=== PATIENT | female | born 1995 | race Caucasian/White ===

== ENCOUNTER 2017-06-03 15:22 | Emergency (ER) | payer MEDICAID, OTHER ==
[~2017-06-03] VITALS: Ht 160 cm; Wt 73.7 kg
[2017-06-03 15:30] VITALS: BP 145/86
--- NOTE | 2017-06-03 15:35 | NUR ---
Pt provided with a urine cup and sent to lobby to wait for a bed.
--- NOTE | 2017-06-03 16:40 | NUR ---
PATIENT PRESENTS TO ED WITH VAGINAL PAIN X 3 DAYS AGO, PT STATES "I HAVE A BALL THE SIZE OF LEMON INSIDE, IT'S SQUISHY." HX NONE; DENIES N/V/D; SKIN IS PINK/WARM/DRY; AAOX4 WITH EVEN AND STEADY GAIT; LUNGS CLEAR BL; HR EVEN AND REGULAR; PT DENIES ANY FEVER, CP, SOB, OR COUGH AT THIS TIME; PATIENT STATES PAIN OF 9/10 AT THIS TIME; VSS; PATIENT POSITIONED FOR COMFORT; HOB ELEVATED; BEDRAILS UP X2; BED DOWN. ER MD MADE AWARE OF PT STATUS.
--- NOTE | 2017-06-03 17:14 | NUR ---
DR ARELLANO EVALUATING AAO PT AT BEDSIDE WITH RN MARII
[2017-06-03] MEDS ORDERED: KETOROLAC 60 MG/2 ML VIAL IM ONE (17:20)
--- NOTE | 2017-06-03 17:20 | NUR ---
Pelvic exam performed by Dr. Palumbo with myself at bedside for entire examination. Patient tolerated procedure well. Patient assisted to position of comfort after examination.
[2017-06-03 17:56] VITALS: BP 143/83
--- NOTE | 2017-06-03 17:56 | NUR ---
Patient discharged with v/s stable. Written and verbal after care instructions given and explained. Patient alert, oriented and verbalized understanding of instructions. Ambulatory with steady gait. All questions addressed prior to discharge. ID band removed. Patient advised to follow up with PMD. Rx of MOTRIN 800MG TAB, NORCO 5MG-325MG TAB & CIPRO 500MG TAB given. Patient educated on indication of medication including possible reaction and side effects. Opportunity to ask questions provided and answered.
== END 2017-06-03 17:56 | disposition home or self-care (01) ==
LOC: MED 15:22
DX: N89.8 Other specified noninflammatory disorders of vagina (principal)
CPT/HCPCS: 81002; 81025; 96372; 99283; J1885

== ENCOUNTER 2018-05-06 19:49 | Observation (INO) | payer SELFPAY ==
[~2018-05-06] VITALS: Ht 157.5 cm; Wt 83.9 kg
[2018-05-06 21:44] VITALS: BP 128/78
== END 2018-05-06 21:03 | disposition home or self-care (01) ==
LOC: MLD 19:49
PROVIDERS: ADMIT Obstetrics & Gynecology; ATTEND Obstetrics & Gynecology
DX: O26.893 Other specified pregnancy related conditions, third trimester (principal); R10.30 Lower abdominal pain, unspecified; Z3A.36 36 weeks gestation of pregnancy
CPT/HCPCS: G0378

== ENCOUNTER 2018-05-25 09:49 | Observation (INO) | payer MEDICAID ==
[~2018-05-25] VITALS: Ht 160 cm; Wt 91.2 kg
[2018-05-25 10:47] VITALS: BP 124/85
[2018-05-25 11:42] LABS: BASOPHILS % (AUTO) 0.5 % (0.0-2.0); EOSINOPHILS # (AUTO) 0.1 K/uL (0-0.4); EOSINOPHILS % (AUTO) 0.8 % (0.0-4.0); HEMATOCRIT 44.8 % (36-48); HEMOGLOBIN 14.9 g/dL (12.0-16.0); LYMPHOCYTES % (AUTO) 19.4 % (20.5-51.1); MEAN CORPUSCULAR HEMOGLOBIN 29 pg (27-31); MEAN CORPUSCULAR HGB CONC 33 g/dL (33-37); MEAN CORPUSCULAR VOLUME 86.1 fL (80-94); MONOCYTES # (AUTO) 0.7 K/uL (0.8-1.0); MONOCYTES % (AUTO) 6.9 % (1.7-9.3); NEUTROPHILS # (AUTO) 7.3 K/uL (1.8-7.7); NEUTROPHILS % (AUTO) 72.4 % (42.2-75.2); PLATELET COUNT (AUTO) 224 K/uL (140-450); RED CELL DISTRIBUTION WIDTH 15.1 % (11.6-13.7); WHITE BLOOD COUNT (AUTO) 10.1 K/uL (4.8-10.8)
[2018-05-25 12:57] LABS: APPEARANCE,URINE HAZY (CLEAR); BILIRUBIN,URINE NEGATIVE (NEGATIVE); BLOOD, URINE TRACE-I (NEGATIVE); COLOR,URINE YELLOW (YELLOW); LEUKOCYTE ESTERASE ,URINE NEGATIVE (NEGATIVE); NITRITE, URINE NEGATIVE (NEGATIVE); UGLUCOSE NEGATIVE (NEGATIVE)
[2018-05-25 13:15] LABS: RBC,URINE 0-5 (RARE) /HPF (0-5); WBC,URINE 0-5 (RARE) /HPF (0-5)
--- NOTE | 2018-05-25 13:49 | NUR ---
PATIENT HAS BEEN SCREENED AND CATEGORIZED LOW NUTRITION RISK. PATIENT WILL BE SEEN WITHIN 7 DAYS OF ADMISSION. 06/01/18 PAULA BARKER MBA, RD
== END 2018-05-25 14:00 | disposition home or self-care (01) ==
LOC: MLD 09:49
PROVIDERS: ADMIT Obstetrics & Gynecology; ATTEND Obstetrics & Gynecology
DX: O26.853 Spotting complicating pregnancy, third trimester (principal); Z3A.38 38 weeks gestation of pregnancy
CPT/HCPCS: 36415; 76805; 81001; 85025; 85379; G0378; Q0092

== ENCOUNTER 2018-05-30 03:50 | Inpatient (IN) | payer MEDICAID ==
[~2018-05-30] VITALS: Ht 160 cm; Wt 73.5 kg
[2018-05-30] MEDS ORDERED: OXYTOCIN 10 UNITS/ML VIAL IM SCH (04:20)
[2018-05-30] MEDS ORDERED: LACTATED RINGERS 500 ML IV ONE (04:20)
[2018-05-30 05:02] VITALS: BP 132/88
[2018-05-30] MEDS: LACTATED RINGERS 1,000 ML IV SCH ×2 (05:23→16:52)
[2018-05-30] MEDS ORDERED: AMPICILLIN 2,000 MG in NACL 0.9% 100 ML IV ONE (05:30)
[2018-05-30] MEDS ORDERED: PREN-380 PO (05:31)
[2018-05-30] MEDS ORDERED: AMPICILLIN 2,000 MG VIAL ONE (05:37)
[2018-05-30 06:05] LABS: BILIRUBIN,URINE NEGATIVE (NEGATIVE); BLOOD, URINE TRACE-I (NEGATIVE); COLOR,URINE YELLOW (YELLOW); LEUKOCYTE ESTERASE ,URINE NEGATIVE (NEGATIVE); NITRITE, URINE NEGATIVE (NEGATIVE); UGLUCOSE NEGATIVE (NEGATIVE)
[2018-05-30 06:06] LABS: APPEARANCE,URINE CLEAR (CLEAR)
[2018-05-30 06:08] LABS: RBC,URINE 0-5 (RARE) /HPF (0-5); WBC,URINE 0-5 (RARE) /HPF (0-5)
[2018-05-30 06:14] LABS: BASOPHILS % (AUTO) 0.3 % (0.0-2.0); EOSINOPHILS # (AUTO) 0.1 K/uL (0-0.4); EOSINOPHILS % (AUTO) 1.5 % (0.0-4.0); HEMATOCRIT 42.1 % (36-48); HEMOGLOBIN 14.3 g/dL (12.0-16.0); LYMPHOCYTES # (AUTO) 2.2 K/uL (2.5-16.5); LYMPHOCYTES % (AUTO) 22.4 % (20.5-51.1); MEAN CORPUSCULAR HEMOGLOBIN 29 pg (27-31); MEAN CORPUSCULAR HGB CONC 34 g/dL (33-37); MEAN CORPUSCULAR VOLUME 85.7 fL (80-94); MONOCYTES # (AUTO) 0.7 K/uL (0.8-1.0); MONOCYTES % (AUTO) 7.3 % (1.7-9.3); NEUTROPHILS # (AUTO) 6.6 K/uL (1.8-7.7); NEUTROPHILS % (AUTO) 68.5 % (42.2-75.2); PLATELET COUNT (AUTO) 214 K/uL (140-450); RED BLOOD CELL COUNT(AUTO) 4.91 MIL/uL (4.20-5.40); RED CELL DISTRIBUTION WIDTH 15.1 % (11.6-13.7); WHITE BLOOD COUNT (AUTO) 9.7 K/uL (4.8-10.8)
[2018-05-30] MEDS ORDERED: OXYTOCIN 20 UNITS/LR PREMIX 1,000 ML IV SCH (08:00)
--- NOTE | 2018-05-30 08:04 | NUR ---
PATIENT HAS BEEN SCREENED AND CATEGORIZED LOW NUTRITION RISK. PATIENT WILL BE SEEN WITHIN 7 DAYS OF ADMISSION. 06/03/18 - 06/05/[address]
[2018-05-30] MEDS: AMPICILLIN 1,000 MG in NACL 0.9% 50 ML IV SCH ×3 (09:24→21:16)
[2018-05-30] MEDS ORDERED: AMPICILLIN 1,000 MG VIAL ONE ×4 (09:26→21:17)
[2018-05-30] MEDS ORDERED: ROPIVACAINE 0.2%/NS PREMIX 100 ML EPI SCH (11:40)
[2018-05-30] MEDS ORDERED: ROPIVACAINE 0.2%/NS PREMIX 100 ML EPI ONE ×2 (11:51→20:52)
[2018-05-30] MEDS: DEXT 5% / LACT RING 1,000 ML IV SCH (19:40)
[2018-05-31] VITALS (14 sets, daily range): BP systolic 106–148; BP diastolic 51–87
[2018-05-31] MEDS ORDERED: AMPICILLIN 1,000 MG VIAL ONE (01:12)
[2018-05-31] MEDS: AMPICILLIN 1,000 MG in NACL 0.9% 50 ML IV SCH (01:12)
[2018-05-31] MEDS ORDERED: TERBUTALINE 1 MG/ML VIAL SUBQ ONE (02:16)
[2018-05-31] MEDS ORDERED: MORPHINE PRES FREE 10 MG/10 ML AMP IV ONE (02:54)
[2018-05-31] MEDS ORDERED: ONDANSETRON 4 MG/2 ML VIAL ONE (02:55)
[2018-05-31] MEDS ORDERED: PROPOFOL 200 MG/20 ML VIAL IV ONE (02:55)
[2018-05-31] MEDS ORDERED: SODIUM BICARBONATE 8.4% PFS 50 MEQ/50 ML SYR IVP ONE (02:56)
[2018-05-31] MEDS ORDERED: LIDOCAINE MPF 2% 100 MG/5 ML VIAL INJ ONE (03:02)
[2018-05-31] MEDS ORDERED: NALOXONE 0.4 MG/ML VIAL ONE (03:17)
[2018-05-31] MEDS ORDERED: fentaNYL 0.05 MG/ML VIAL ONE (03:48)
[2018-05-31] MEDS ORDERED: KETAMINE 500 MG/5 ML VIAL ONE (03:52)
[2018-05-31] MEDS ORDERED: MIDAZOLAM 2 MG/2 ML VIAL ONE (03:52)
[2018-05-31] MEDS ORDERED: diphenhydrAMINE 50 MG/ML VIAL IVP PRN (05:55)
[2018-05-31] MEDS ORDERED: ONDANSETRON 4 MG/2 ML VIAL IVP PRN (05:55)
[2018-05-31] MEDS ORDERED: NALOXONE 0.4 MG/ML VIAL IVP PRN (05:55)
[2018-05-31 06:26] LABS: BASOPHILS % (AUTO) 0.1 % (0.0-2.0); EOSINOPHILS % (AUTO) 0.1 % (0.0-4.0); HEMATOCRIT 38.4 % (36-48); HEMOGLOBIN 12.9 g/dL (12.0-16.0); LYMPHOCYTES # (AUTO) 0.4 K/uL (2.5-16.5); LYMPHOCYTES % (AUTO) 7.9 % (20.5-51.1); MEAN CORPUSCULAR HEMOGLOBIN 29 pg (27-31); MEAN CORPUSCULAR HGB CONC 34 g/dL (33-37); MEAN CORPUSCULAR VOLUME 86.8 fL (80-94); MONOCYTES # (AUTO) 0.2 K/uL (0.8-1.0); MONOCYTES % (AUTO) 3.9 % (1.7-9.3); NEUTROPHILS # (AUTO) 4.6 K/uL (1.8-7.7); PLATELET COUNT (AUTO) 172 K/uL (140-450); RED BLOOD CELL COUNT(AUTO) 4.43 MIL/uL (4.20-5.40); RED CELL DISTRIBUTION WIDTH 15.2 % (11.6-13.7); WHITE BLOOD COUNT (AUTO) 5.2 K/uL (4.8-10.8)
[2018-05-31] MEDS ORDERED: OXYTOCIN 20 UNITS/LR PREMIX 1,000 ML IV ONE (06:33)
[2018-05-31 06:34] LABS: CARBON DIOXIDE 16.8 mmol/L (21-32); CREATININE 1.2 mg/dL (0.6-1.3); POTASSIUM 3.8 mmol/L (3.5-5.1)
[2018-05-31 06:39] LABS: ALBUMIN 1.7 g/dL (3.4-5.0); TOTAL BILIRUBIN 0.9 mg/dL (0.0-1.0)
[2018-05-31] MEDS ORDERED: MEASLES, MUMPS, AND RUBELLA 1 VIAL SQVAC PRN (06:45)
--- NOTE | 2018-05-31 06:47 | NUR ---
RECEIVED PATIENT ON ICU FROM RN, KAREN AMAYA.
--- NOTE | 2018-05-31 07:15 | NUR ---
DR. NOLASCO THE CORROSION PREVENTION METAL SPRAYER CALLED TO NOTIFIED .
--- NOTE | 2018-05-31 07:30 | NUR ---
RECEIVED PT FROM PM NURSE, PT IS SLEEPING BUT AROUSABLE. ABLE TO FOLLOW COMMANDS. BEDSIDE MONITOR SHOWS ST 130S-136S, ON O2 NC 2L/MIN, O2 99%.NO S/S OF RESPIRATORY DISTRESS NOTED. LUNG SOUND CLEAR UPON AUSCULTATION. ABD COVERED WITH DRESSING, CLEAN AND DRY. F/C IN PLACE WITH YELLOW URINE NOTED. INTRODUCED MYSELF . PT LYING FLAT IN BED , CALL LIGHT IN REACH, FAMILY AT BEDSIDE, WILL CONTINUE TO MONITOR.
--- NOTE | 2018-05-31 07:35 | NUR ---
PT HAS IV TO RIGHT FM # 20 RUNNING PITOCIN 20 UNITS/LR 1000 ML AT 125 MLS/HR. F/C TUBE HAS YELLOW URINE BUT F/C BAG URINE COLOR IS DARK MESERET. PT ALSO HAS MIMI DRAIN WITHOUT ANY DRAINAGE NOTED AT THIS MOMENT.
--- NOTE | 2018-05-31 07:45 | NUR ---
DR NOLASCO RETURN CALL.
[2018-05-31] MEDS: DEXT 5% / LACT RING 1,000 ML IV SCH (09:30)
--- NOTE | 2018-05-31 09:30 | NUR ---
DR. NOLASCO CALLED AND ORDER CT ANGIO OF CHEST WITH CONTRAS.
--- NOTE | 2018-05-31 09:30 | NUR ---
HUNG D5 LR AT 125 MLS/HR. IV SITE INTACT AND PATENT. PT STATED SHE DOES NOT HAVE PAIN IF SHE DOES NOT MOVE.
--- NOTE | 2018-05-31 10:15 | NUR ---
DR. NOLASCO AT BEDSIDE TO CHECK PT, PT AWAKE, ALERT AND ORIENTED. ALSO EXPLAINED RISKS AND BENEFITS OF CT ANGIO SCAN. PT SIGNED CONSENT.
--- NOTE | 2018-05-31 10:15 | NUR ---
SEEN BY DR. NOLASCO CONSENT FOR CT ANGIO OF CHEST SIGN.
[2018-05-31] MEDS ORDERED: VANCOMYCIN PER PHARMACY MC PRN (10:45)
[2018-05-31] MEDS ORDERED: PIPER/TAZO 3.375GM/D5W PREMIX 50 ML IV SCH (11:00)
--- NOTE | 2018-05-31 11:00 | NUR ---
SPREADING MACHINE OPERATOR AT BEDSIDE.
--- NOTE | 2018-05-31 11:37 | NUR ---
PT RESTING IN BED, PT DENIES ANY PAIN BUT PT STATED SHE HAS A LITTLE BIT PAIN WHEN SHE TURNS HERSELF.
--- NOTE | 2018-05-31 11:52 | NUR ---
LAB CALL RICARDO BURK 4.1, DR. CONSTANCE NORWOOD.
[2018-05-31] MEDS ORDERED: NACL 0.9% 1,000 ML IV SCH ×2 (12:10→12:30)
--- NOTE | 2018-05-31 12:15 | NUR ---
DR. NOLASCO CALL BACK, ORDER TO BOLUS 1000ML NS AND TO GIVE D5NS AT 125 ML/HR AFTER.
[2018-05-31] MEDS: PIPER/TAZO 3.375GM/D5W PREMIX 50 ML IV SCH ×3 (12:27→23:05)
[2018-05-31] MEDS: DEXT 5% /NACL 0.9% 1,000 ML IV SCH ×2 (12:30→13:30)
[2018-05-31] MEDS ORDERED: DEXT 5% / NACL 0.9% 500 ML IV SCH (12:30)
--- NOTE | 2018-05-31 12:30 | NUR ---
BOLUS 0.9 NS 1 L GIVEN ORDERED.
[2018-05-31] MEDS: OXYTOCIN 20 UNITS in LACTATED RINGERS 1,000 ML IV SCH ×2 (12:54→14:43)
[2018-05-31] MEDS: VANCOMYCIN 750 MG in DEXTROSE 5% 250 ML IV SCH (13:25)
[2018-05-31 14:37] LABS: BASOPHILS % (AUTO) 0.2 % (0.0-2.0); HEMATOCRIT 36.3 % (36-48); LYMPHOCYTES # (AUTO) 0.4 K/uL (2.5-16.5); LYMPHOCYTES % (AUTO) 3.4 % (20.5-51.1); MEAN CORPUSCULAR HEMOGLOBIN 29 pg (27-31); MEAN CORPUSCULAR HGB CONC 33 g/dL (33-37); MONOCYTES # (AUTO) 0.4 K/uL (0.8-1.0); MONOCYTES % (AUTO) 3.6 % (1.7-9.3); NEUTROPHILS # (AUTO) 11.7 K/uL (1.8-7.7); NEUTROPHILS % (AUTO) 92.8 % (42.2-75.2); PLATELET COUNT (AUTO) 156 K/uL (140-450); RED BLOOD CELL COUNT(AUTO) 4.17 MIL/uL (4.20-5.40); RED CELL DISTRIBUTION WIDTH 15.3 % (11.6-13.7); WHITE BLOOD COUNT (AUTO) 12.6 K/uL (4.8-10.8)
--- NOTE | 2018-05-31 15:09 | NUR ---
NOTIFIED DR. NOLASCO PT HEART RATE IS STILL BETWEEN 130-139S. DR. NOLASCO ORDERED ANOTHER 1 LITER 0.[address] NOLASCO STATED HE IS COMING TO CHECK PT.
[2018-05-31] MEDS ORDERED: NACL 0.9% 500 ML IV SCH (15:10)
--- NOTE | 2018-05-31 15:28 | NUR ---
NS 1 LTR BOLUS STARTED PER ORDER.
--- NOTE | 2018-05-31 15:50 | NUR ---
DR. NOLASCO INTO UNIT TO CHECK PT. NOTIFIED PT'S HEART RATE 140S. PER DR. NOLASCO .D/C PITOCIN 20 UNITS/LR 1000 ML @ 125 ML/HR WHEN THIS CURRENT PITOCIN BAG IS DONE. CHARGE NURSE MALLORY MADE AWARE.
[2018-05-31] MEDS: LORazepam 1 MG TAB PO PRN ×2 (16:05→21:57)
--- NOTE | 2018-05-31 17:53 | NUR ---
DR. SCHOFIELD THE UTILITY ENGINEER INFORM THAT PT. HEART RATE IS INCREASE UP TO 150/MIN. HE WILL COME TO SEE THE PATIEN SOON.
--- NOTE | 2018-05-31 17:55 | NUR ---
NOTIFIED PT HEART RATE GOING UP TO 150S. AND DOUBLE CHECKED WITH DR. NOLASCO D/C PITOCIN DRIP WHEN THIS BAG IS DONE. DR. NOLASCO SAID " D/C PITOCIN DRIP WHEN THIS BAG IS DONE". CHARGE NURSE MADE AWARE.
--- NOTE | 2018-05-31 18:24 | NUR ---
CHECKED PT TEMP 99.7F. ICE BAGS GIVEN. WILL RECHECK IN 30 MINUTES. PT STATED SHE DOES NOT WANT TO EAT ANYTHING. FAMILY AT BEDSIDE.
[2018-05-31] MEDS ORDERED: METOPROLOL 5 MG/5 ML VIAL IV PRN (18:55)
[2018-05-31] MEDS ORDERED: METOPROLOL 5 MG/5 ML VIAL IV SCH (19:00)
--- NOTE | 2018-05-31 19:00 | NUR ---
ORAL temp checked 99.7F.removed one blanket. ice bags still in place.
--- NOTE | 2018-05-31 19:30 | NUR ---
RECEIVED REPORT FROM MORNING RN, SHARAN, FOR CONTINUITY OF CARE. PT AWAKE, ALERT AND ORIENTED X4. ABLE TO MAKE NEEDS KNOWN AND ABLE TO ANSWER QUESTIONS. PT DENIES HAVING ANY PAIN AT THIS TIME. PERRL. PT ABLE TO MOVE EXTREMITIES. LUNG SOUNDS CLEAR. PT ON OXYGEN AT 2L/MIN AND DENIES ANY SOB. RESPIRATIONS ARE EVEN AND UNLABORED. CHEST RISE SYMMETRIC. S1+S2 HEARD. PULSES ARE PALPABLE IN ALL EXTREMITIES. PT TACHYCARDIC ON MONITOR WITH HR BETWEEN 130S TO 140S. ABDOMEN ROUND, SOFT AND NONDISTENDED. ABDOMINAL DRESSING INTACT. NO BLEEDING NOTED. MIMI DRAIN ON THE LEFT SIDE OF ABDOMEN HAS MINIMAL OUTPUT AT THIS TIME. RUIZ CATHETER IN PLACE DRAINING CLEAR AND DARK YELLOW URINE. PT NOTED WITH MINIMAL LOCHIA RUBRA. RECEIVED PT WITH LEFT AC 20G PERIPHERAL IV ACCESS. LINE WAS FLUSHED AND WAS PATENT, INTACT, AND ASYMPTOMATIC. BLOOD RETURN NOTED. PT HAS SCD IN PLACE. KEPT BED AT LOW POSSIBLE POSITION, SAFETY PRECAUTIONS IN PLACE, AND CALL LIGHT IS WITHIN REACH.
[2018-05-31] MEDS ORDERED: ACETAMINOPHEN 325 MG TAB ONE (19:56)
--- NOTE | 2018-05-31 20:05 | NUR ---
PAGED DR. DU D/T ELEVATED TEMPERATURE OF 101.7; KEPT COOLING MEASURES IN PLACE. OFFERED TO SWITCH CURRENT BLANKET TO A THINNER ONE, BUT PT PREFER WHAT SHE CURRENTLY HAS D/T FEELING COLD.
--- NOTE | 2018-05-31 20:21 | NUR ---
RECEIVED CALLBACK FROM DR. DU, UPDATED HIM REGARDING CURRENT CONDITION OF PT AND RECEIVED NEW ORDER.
[2018-05-31] MEDS: ACETAMINOPHEN 325 MG TAB PO PRN (20:38)
--- NOTE | 2018-05-31 20:38 | NUR ---
RECHECKED PT'S TEMPERATURE PRIOR TO ANTIPYRETIC MEDICATION ADMINISTRATION. CURRENT TEMPERATURE IS 100.9
[2018-05-31 21:10] LABS: BASOPHILS % (AUTO) 0.2 % (0.0-2.0); HEMATOCRIT 33.9 % (36-48); HEMOGLOBIN 11.3 g/dL (12.0-16.0); LYMPHOCYTES # (AUTO) 0.8 K/uL (2.5-16.5); LYMPHOCYTES % (AUTO) 5.7 % (20.5-51.1); MEAN CORPUSCULAR HEMOGLOBIN 29 pg (27-31); MEAN CORPUSCULAR HGB CONC 33 g/dL (33-37); MEAN CORPUSCULAR VOLUME 86.6 fL (80-94); MONOCYTES # (AUTO) 0.7 K/uL (0.8-1.0); MONOCYTES % (AUTO) 5.1 % (1.7-9.3); NEUTROPHILS # (AUTO) 11.9 K/uL (1.8-7.7); PLATELET COUNT (AUTO) 151 K/uL (140-450); RED BLOOD CELL COUNT(AUTO) 3.91 MIL/uL (4.20-5.40); RED CELL DISTRIBUTION WIDTH 15.5 % (11.6-13.7); WHITE BLOOD COUNT (AUTO) 13.4 K/uL (4.8-10.8)
--- NOTE | 2018-05-31 21:40 | NUR ---
CURRENT TEMPERATURE OF PT 99.8; REMOVED COOLING MEASURES IN PLACE AT THIS TIME. PT STATES THAT SHE FEELS BETTER AND NO LONGER FEELING HOT.
--- NOTE | 2018-05-31 21:55 | NUR ---
PT NOTED TO STILL HAVE ELEVATED HR BETWEEN HIGH 130S TO HIGH 140S. SLIGHTLY ELEVATED RR AT 26. ATIVAN INDICATED FOR ANXIETY WAS ADMINISTERED. WILL RE-EVALUATE IN AN HOUR.
--- NOTE | 2018-05-31 22:55 | NUR ---
PT STILL HAS ELEVATED HR DESPITE MEDICATIONS ADMINISTERED. WILL FOLLOW-UP WITH SEASONAL RECRUITER, DR. ROSA SCHOFIELD.
--- NOTE | 2018-05-31 23:14 | NUR ---
CALLED DR. Crystal SCHOFIELD AND DISCUSSED WITH HIM THE CURRENT HR OF PATIENT. INFORMED HIM REGARDING THE CURRENT VS. RECEIVED NEW ORDERS. NOTED AND CARRIED OUT.
[2018-06-01] VITALS (11 sets, daily range): BP systolic 115–148; BP diastolic 50–104
[2018-06-01] MEDS ORDERED: METOPROLOL 5 MG/5 ML VIAL IV SCH
[2018-06-01] MEDS: VANCOMYCIN 750 MG in DEXTROSE 5% 250 ML IV SCH (00:02)
--- NOTE | 2018-06-01 00:10 | NUR ---
PT AFEBRILE AT THIS TIME. RESPIRATIONS ARE EVEN AND UNLABORED. PT STILL DENIES PAIN. REMINDED PT TO INFORM RN ONCE SHE STARTS FEELING ANY PAIN. STILL HAS ADEQUATE URINARY OUTPUT AT THIS TIME. CHECKED PERIPHERAL IV ACCESS ON LEFT FOREARM AND IT REMAINS INTACT WITH GOOD BLOOD RETURN.
--- NOTE | 2018-06-01 02:00 | NUR ---
PT'S HR HAS BEEN BETWEEN LOW 130S TO LOW 140S. OTHER VS ARE STABLE. PT STILL DENIES PAIN AT THIS TIME. RESPIRATIONS ARE EVEN AND UNLABORED. STILL ON OXYGEN AT 2L/MIN. ASSISTED PT IN REPOSITIONING. PT STILL HAS ADEQUATE URINARY OUTPUT.
[2018-06-01] MEDS: DEXT 5% /NACL 0.9% 1,000 ML IV SCH ×3 (02:35→20:30)
--- NOTE | 2018-06-01 03:49 | NUR ---
PT AWAKE AT THIS TIME. SINUS TACHYCARDIA ON THE MONITOR WITH HR AT 139 AT THIS TIME. PT DENIES FEELING ANY DISCOMFORT CURRENTLY. SKIN IS WARM AND DRY TO TOUCH, AFEBRILE AT THIS TIME. CALL LIGHT STILL WITHIN REACH.
--- NOTE | 2018-06-01 05:40 | NUR ---
RUIZ CATHETER CARE PROVIDED WITH PT. PT ABLE TO ASSIST IN TURNING BUT NEEDS MODERATE ASSISTANCE. NO BLEEDING NOTED FROM THE ABD DRESSING. RUIZ CATHETER STILL HAS ADEQUATE URINE OUTPUT. IV SITE ON LEFT AC REMAINS INTACT AND ASYMPTOMATIC. PT DENIES ANY PAIN OR ANY DISCOMFORT AFTER PM CARE PROVIDED. KEPT PT WITH HOB ELEVATED. ENCOURAGED PT TO USE INCENTIVE SPIROMETER. INSTRUCTED PT ON HOW TO USE IT WELL BUT NEEDS REINFORCEMENT.
[2018-06-01] MEDS: PIPER/TAZO 3.375GM/D5W PREMIX 50 ML IV SCH ×4 (05:52→23:44)
--- NOTE | 2018-06-01 07:15 | NUR ---
REPORT GIVEN TO MORNING RN FOR CONTINUITY OF CARE. PT IN STABLE CONDITION AT THIS TIME. ENDORSED TO MORNING RN THE LABS PENDING AND REMOVAL OF RUIZ CATHETER.
--- NOTE | 2018-06-01 07:16 | NUR ---
RECEIVED REPORT FROM PRODUCT MANAGENT INTERN RN. PT A/O X4. MAKES NEEDS KNOWN. SKIN DRY AND WARM TO TOUCH. ST ON MONITOR. ON O2 AT 2 LTR/MIN VIA NC. LUNGS CLEAR. LAC 20 G. INTACT. D5%NS INFUSING AT 125 ML/HR. BRUISE NOTED ON LFA. ABDOMEN FIRM, ROUND AND TENDER. S/P C/S DRESSING DRY, INTACT. MINIMAL DRAINAGE ON DRAINAGE BAG. MINIMAL LOCHIA RUBRA NOTED. KADE CARE PROVIDED. HYPOACTIVE BOWEL SOUND. ON RUIZ CATH DRAINING DARK MESERET URINE IN DRAINAGE BAG. KEPT HOB ELEVATED. BED IN LOW POSITION LOCKED. WILL CONTINUE TO MONITOR.
[2018-06-01 07:22] LABS: BASOPHILS % (AUTO) 0.1 % (0.0-2.0); EOSINOPHILS # (AUTO) 0.1 K/uL (0-0.4); EOSINOPHILS % (AUTO) 0.5 % (0.0-4.0); HEMATOCRIT 31.9 % (36-48); HEMOGLOBIN 10.6 g/dL (12.0-16.0); LYMPHOCYTES # (AUTO) 0.9 K/uL (2.5-16.5); MEAN CORPUSCULAR HEMOGLOBIN 29 pg (27-31); MEAN CORPUSCULAR HGB CONC 33 g/dL (33-37); MEAN CORPUSCULAR VOLUME 86.6 fL (80-94); MONOCYTES # (AUTO) 0.4 K/uL (0.8-1.0); MONOCYTES % (AUTO) 3.3 % (1.7-9.3); NEUTROPHILS # (AUTO) 11.9 K/uL (1.8-7.7); NEUTROPHILS % (AUTO) 89.1 % (42.2-75.2); PLATELET COUNT (AUTO) 140 K/uL (140-450); RED BLOOD CELL COUNT(AUTO) 3.68 MIL/uL (4.20-5.40); RED CELL DISTRIBUTION WIDTH 15.6 % (11.6-13.7); WHITE BLOOD COUNT (AUTO) 13.3 K/uL (4.8-10.8)
[2018-06-01 08:02] LABS: MAGNESIUM 1.2 mg/dL (1.8-2.4); PHOSPHORUS 3.9 mg/dL (2.5-4.9)
[2018-06-01 08:15] LABS: POTASSIUM 3.6 mmol/L (3.5-5.1)
[2018-06-01 08:16] LABS: ANION GAP 9.3 (8-16); CARBON DIOXIDE 25.3 mmol/L (21-32); CREATININE 0.7 mg/dL (0.6-1.3)
[2018-06-01 08:35] LABS: ALBUMIN 1.5 g/dL (3.4-5.0); BILIRUBIN,DIRECT 0.4 mg/dL (0.0-0.3); TOTAL BILIRUBIN 0.9 mg/dL (0.0-1.0)
[2018-06-01] MEDS ORDERED: METOPROLOL 25 MG TAB PO SCH (08:50)
[2018-06-01] MEDS ORDERED: MAG SULF 2000 MG/WATER PREMIX 100 ML IV SCH (08:51)
[2018-06-01 09:11] LABS: BASOPHILS % (AUTO) 0.1 % (0.0-2.0); EOSINOPHILS # (AUTO) 0.1 K/uL (0-0.4); EOSINOPHILS % (AUTO) 0.5 % (0.0-4.0); HEMATOCRIT 32.6 % (36-48); HEMOGLOBIN 10.7 g/dL (12.0-16.0); LYMPHOCYTES # (AUTO) 0.8 K/uL (2.5-16.5); LYMPHOCYTES % (AUTO) 5.5 % (20.5-51.1); MEAN CORPUSCULAR HEMOGLOBIN 29 pg (27-31); MEAN CORPUSCULAR HGB CONC 33 g/dL (33-37); MEAN CORPUSCULAR VOLUME 87.4 fL (80-94); MONOCYTES # (AUTO) 0.5 K/uL (0.8-1.0); MONOCYTES % (AUTO) 3.7 % (1.7-9.3); NEUTROPHILS # (AUTO) 12.9 K/uL (1.8-7.7); NEUTROPHILS % (AUTO) 90.2 % (42.2-75.2); PLATELET COUNT (AUTO) 142 K/uL (140-450); RED BLOOD CELL COUNT(AUTO) 3.73 MIL/uL (4.20-5.40); RED CELL DISTRIBUTION WIDTH 15.3 % (11.6-13.7); WHITE BLOOD COUNT (AUTO) 14.4 K/uL (4.8-10.8)
[2018-06-01] MEDS: KETOROLAC 30 MG/ML VIAL IVP PRN ×2 (09:22→16:25)
[2018-06-01] MEDS: ACETAMINOPHEN 325 MG TAB PO PRN ×2 (09:22→16:31)
--- NOTE | 2018-06-01 09:31 | NUR ---
Pt. c/o pain at surgical site. toradol administered as ordered. Noted with elevated body temperature 100.6 Degree F. Tylenol administered ad ordered. sponge bath given. continue on cold compress.
--- NOTE | 2018-06-01 10:34 | NUR ---
Temperature decreased to 99.4 degree F. Pt. verbalized feeling better and more relaxed. Denies pain. HR 117 in monitor.
--- NOTE | 2018-06-01 10:36 | NUR ---
Urine culture taken to the lab.
--- NOTE | 2018-06-01 11:43 | NUR ---
FATHER CAME IN ROOM TO VISIT PT. ASK FOR PRINT SHOP STENOGRAPHER TO SPEAK. CALLED PRINT SHOP STENOGRAPHER USING [email or web address]. SPOKE WITH DIGITAL ASSOCIATE MEDIA DIRECTOR MATT # [phone]. PRINT SHOP STENOGRAPHER SAID FATHER WANTS INSPERSION PRINT SHOP STENOGRAPHER, AND IS UPSET. FATHER HUNG UP CALL. PICKER MACHINE OPERATOR LIZETTE CASILLAS.
--- NOTE | 2018-06-01 11:47 | NUR ---
DR NOLASCO AWARE ABOUT TACHYCARDIA AND TACHYPNEA. CONTINUE WITH CURRENT POC.
--- NOTE | 2018-06-01 11:47 | NUR ---
SEEN BY DR. NOLASCO. UPDATED PT CONDITION. MADE AWARE ABOUT FEVER.
--- NOTE | 2018-06-01 12:40 | NUR ---
VANCOMYCIN WILL BE GIVEN AFTER VANCO TROUGH RESULT. PHARMACY AWARE ABOUT DUE VANCO TROUGH.
[2018-06-01] MEDS: METOPROLOL 25 MG TAB PO SCH ×2 (13:12→20:34)
[2018-06-01] MEDS: HYDROmorphone 1 MG/ML AMP IVP PRN (13:17)
--- NOTE | 2018-06-01 14:08 | NUR ---
PT DENIES PAIN AT THIS TIME. ST ON MONITOR. RR 18. D5%NS INFUSING. CONTINUE ON O2 AT 2 LTR/MIN.
[2018-06-01] MEDS ORDERED: VANCOMYCIN 1,500 MG in DEXTROSE 5% 500 ML IV SCH (14:16)
[2018-06-01] MEDS ORDERED: NACL 0.9% 1,000 ML IV SCH (15:10)
--- NOTE | 2018-06-01 16:33 | NUR ---
NOTED WITH FEVER 100.6 DEGREE F. TYLENOL PER ORDER GIVEN. CONTINUE ON COLD COMPRESS.
--- NOTE | 2018-06-01 17:08 | NUR ---
DC'D RUIZ CATHETER.
--- NOTE | 2018-06-01 18:22 | NUR ---
PT REQUESTED TO KEEP VALUABLES IN SAFE. CALLED ADMITTING. VALUABLES TAKEN BY ADMITTING. Addendum: 06/01/18 at 1826 by Diana Hernandez RN WRONG PT CHARTING
--- NOTE | 2018-06-01 18:30 | NUR ---
PT SIT UP. ENCOURAGED TO USE SPIROMETRY. TOLERATED WELL. VOIDED X1.
--- NOTE | 2018-06-01 19:17 | NUR ---
REPORT GIVEN TO SUPERVISOR BONDING RN FOR CONTINUITY OF CARE.
--- NOTE | 2018-06-01 19:30 | NUR ---
RECEIVED REPORT FROM MORNING RN, BARTOLO, FOR CONTINUITY OF CARE. PT AWAKE, ALERT AND ORIENTED X4. ABLE TO MAKE NEEDS KNOWN. PT IS ABLE TO FOLLOW COMMANDS. AFEBRILE. VS WNL ASIDE FROM ELEVATED HR. PERRL. PT ABLE TO MOVE EXTREMITIES. PT DENIES PAIN AT THIS TIME. LUNG SOUNDS CLEAR. RECEIVED PT ON OXYGEN AT 2L/MIN VIA NC. RESPIRATIONS ARE EVEN AND UNLABORED. NO SOB NOTED. PT HAS INCENTIVE SPIROMETER AND KNOWS HOW TO USE IT. S1+S2 HEARD[address] ON MONITOR. PULSES ARE PALPABLE IN ALL EXTREMITIES. ABDOMEN ROUND, SOFT AND NONDISTENDED. BS ACTIVE IN ALL QUADRANTS. ABD DRESSING INTACT AND NO BLEEDING NOTED. MIMI DRAIN IN PLACE AND HAS MINIMAL OUTPUT OF SANGUINOUS FLUID. SCANT LOCHIA RUBRA NOTED. PT DENIES NEEDING TO VOID AT THIS TIME. SCD IN PLACE. PT HAS PERIPHERAL IV ACCESS ON LEFT AC 20G. LINE IS PATENT, INTACT, AND ASYMPTOMATIC. LINE FLUSHED WELL AND HAS A GOOD BLOOD RETURN NOTED. RECEIVED PT ON D5 NS AT 125ML/HR. HOB AT 30 DEGREES. LINE AT LOWEST POSSIBLE POSITION. CALL LIGHT WITHIN REACH. ALL SAFETY PRECAUTIONS ARE IN PLACE.
[2018-06-01] MEDS: VANCOMYCIN 1,500 MG in DEXTROSE 5% 500 ML IV SCH (20:08)
--- NOTE | 2018-06-01 20:20 | NUR ---
PT C/O TIGHTNESS IN HER CHEST AND DIFFICULTY BREATHING. VS STABLE. ST ON MONITOR. OXYGEN SATURATION WNL. PAGED DR. Crystal SCHOFIELD.
--- NOTE | 2018-06-01 20:25 | NUR ---
INFORMED PT THAT COMMUNITY HEALTH EDUCATOR HAS BEEN PAGED AND WAITING FOR CALLBACK REGARDING ANY FURTHER ORDERS. ACCORDING TO PT, SHE ALSO HAD THIS TYPE OF PAIN EARLIER IN THE DAY AND IT GOT BETTER AFTER MEDICATION.
--- NOTE | 2018-06-01 20:28 | NUR ---
DR. LE AT BEDSIDE TO SEE PT. UPDATED HER REGARDING PT'S CONDITION. RECEIVED NEW ORDERS.
[2018-06-01] MEDS ORDERED: FUROSEMIDE 20 MG/2 ML VIAL IVP ONE (20:30)
--- NOTE | 2018-06-01 20:32 | NUR ---
DR. HATFIELD CAME TO SEE PT. UPDATED HIM REGARDING CONDITION OF PT. NO FURTHER ORDERS RECEIVED.
[2018-06-01] MEDS ORDERED: FUROSEMIDE 40 MG/4 ML VIAL IVP ONE (20:36)
[2018-06-01 21:02] LABS: HEMATOCRIT 33.5 % (36-48); MEAN CORPUSCULAR HEMOGLOBIN 29 pg (27-31); MEAN CORPUSCULAR HGB CONC 33 g/dL (33-37); MEAN CORPUSCULAR VOLUME 87.3 fL (80-94); PLATELET COUNT (AUTO) 163 K/uL (140-450); RED BLOOD CELL COUNT(AUTO) 3.84 MIL/uL (4.20-5.40); RED CELL DISTRIBUTION WIDTH 15.4 % (11.6-13.7); WHITE BLOOD COUNT (AUTO) 13.2 K/uL (4.8-10.8)
--- NOTE | 2018-06-01 21:05 | NUR ---
URIZ CATHETER INSERTED. PT TOLERATED WELL. UPON INSERTION PT HAS 450ML URINARY OUTPUT. URINE IS CLEAR AND YELLOW. Addendum: 06/02/18 at 0654 by Jillian Crawley RN RUIZ CATHETER WAS INSERTED PER DR. LE TO MONITOR URINARY OUTPUT ACCURATELY. PT WAS GIVEN LASIX 40MG IVP ONCE.
[2018-06-01 21:15] LABS: EOSINOPHILS % (MANUAL) 3 % (0-4); LYMPHOCYTES % (MANUAL) 6 % (20-46); MONOCYTES % (MANUAL) 2 % (5-12)
[2018-06-01 21:16] LABS: CARBON DIOXIDE 27.2 mmol/L (21-32); CREATININE 0.9 mg/dL (0.6-1.3); POTASSIUM 4.2 mmol/L (3.5-5.1)
[2018-06-01 21:18] LABS: PROTHROMBIN TIME 11.5 secs (10.8-13.4)
--- NOTE | 2018-06-01 21:21 | NUR ---
DR. LE STILL IN THE UNIT. REPORTED LAB VALUES. RECEIVED NEW ORDER
--- NOTE | 2018-06-01 22:11 | NUR ---
PT WAS C/O NAUSEA. EMESIS BAG GIVEN TO PT; CALLED [facility] FOR ON-CALL DOCTOR FOR DR. DU. WILL WAIT FOR CALL BACK.
--- NOTE | 2018-06-01 22:14 | NUR ---
RECEIVED A CALL BACK FROM DR. WHEELER, UPDATED HIM REGARDING PT'S CONDITION AND RECEIVED NEW ORDER. NOTED AND CARRIED OUT
--- NOTE | 2018-06-01 22:15 | NUR ---
CHEST X-RAY RESULT WAS REPORTED TO DR. LE. RECEIVED NEW ORDER FOR CTA WITH CONTRAST Addendum: 06/01/18 at 2246 by Jillian Crawley RN DR. LE WAS INFORMED THAT PT HAD A CT CHEST ANGIOGRAM DONE ON 05/31/18; SHE STILL WANTED THE TEST TO BE DONE AGAIN D/T ABNORMAL CHEST X-RAY OF PT.
--- NOTE | 2018-06-01 22:25 | NUR ---
CONSENT OBTAINED FROM PT; PT VERBALIZES UNDERSTANDING REGARDING THE TEST TO BE DONE.
[2018-06-01] MEDS: ONDANSETRON 4 MG/2 ML VIAL IVP PRN (22:28)
--- NOTE | 2018-06-01 22:56 | NUR ---
CALLED RADIOLOGY DEPARTMENT TO ASK WHAT TIME CAN THE PT BE TAKEN FOR A CT CHEST ANGIO ORDERED, ACCORDING TO KE THEY WILL CALL ICU TO INFORM US HOW SOON PT CAN BE TAKE. WILL FOLLOW-UP
--- NOTE | 2018-06-01 23:28 | NUR ---
PT DENIES N/V AT THIS TIME. STATES "I FEEL BETTER".
--- NOTE | 2018-06-01 23:35 | NUR ---
PT RETURNED IN THE UNIT FROM RADIOLOGY DEPARTMENT. VS STABLE AT THIS TIME ASIDE FROM ELEVATED HR. PT DENIES ANY DIFFICULTY BREATHING. PT WAS SETTLED IN BED. LEFT AC PERIPHERAL IV LINE 20G WAS FLUSHED. LINE IS STILL PATENT, INTACT, AND ASYMPTOMATIC. PT CONNECTED TO BEDSIDE MONITOR. HOB AT 30 DEGREES. BED AT LOW POSITION. CALL LIGHT WITHIN REACH. PT'S PARTNER STILL AT BEDSIDE AT THIS TIME.
[2018-06-01] MEDS: DILTIAZEM 30 MG TAB PO SCH (23:45)
[2018-06-02] VITALS (12 sets, daily range): BP systolic 110–145; BP diastolic 59–87
--- NOTE | 2018-06-02 00:46 | NUR ---
CALLED SHIP'S SURVEYOR, DR. LE, AND REPORTED THE RESULT OF THE CT CHEST ANGIO WITH CONTRAST. CURRENT HR OF PT REPORTED WELL. INFORMED PHYSICIAN THAT THERE IS NO CURRENT CHANGE IN CONDITION. RECEIVED NO FURTHER ORDERS.
--- NOTE | 2018-06-02 02:22 | NUR ---
NO CHANGE IN PT'S CONDITION. HR STILL BETWEEN 110S TO 130S. PT AFEBRILE. NO C/O OF ANY PAIN.
--- NOTE | 2018-06-02 04:15 | NUR ---
RESPIRATIONS ARE EVEN AND UNLABORED. NO SOB NOTED. BEDSIDE MONITOR SHOWS ST. WILL CONTINUE TO MONITOR PT.
[2018-06-02] MEDS: DILTIAZEM 30 MG TAB PO SCH ×3 (05:25→17:50)
[2018-06-02] MEDS: PIPER/TAZO 3.375GM/D5W PREMIX 50 ML IV SCH ×3 (05:25→17:51)
[2018-06-02 05:29] LABS: BASOPHILS % (AUTO) 0.3 % (0.0-2.0); EOSINOPHILS # (AUTO) 0.1 K/uL (0-0.4); EOSINOPHILS % (AUTO) 0.4 % (0.0-4.0); HEMOGLOBIN 10.3 g/dL (12.0-16.0); LYMPHOCYTES # (AUTO) 0.8 K/uL (2.5-16.5); LYMPHOCYTES % (AUTO) 6.1 % (20.5-51.1); MEAN CORPUSCULAR HEMOGLOBIN 29 pg (27-31); MEAN CORPUSCULAR HGB CONC 33 g/dL (33-37); MEAN CORPUSCULAR VOLUME 86.3 fL (80-94); MONOCYTES # (AUTO) 0.4 K/uL (0.8-1.0); MONOCYTES % (AUTO) 3.3 % (1.7-9.3); NEUTROPHILS # (AUTO) 12.3 K/uL (1.8-7.7); NEUTROPHILS % (AUTO) 89.9 % (42.2-75.2); PLATELET COUNT (AUTO) 176 K/uL (140-450); RED CELL DISTRIBUTION WIDTH 15.3 % (11.6-13.7); WHITE BLOOD COUNT (AUTO) 13.7 K/uL (4.8-10.8)
--- NOTE | 2018-06-02 05:30 | NUR ---
RUIZ CATHETER CARE PROVIDED. PT STILL HAS ADEQUATE URINARY OUTPUT. PT WANTED TO GET OUT OF BED AND SIT IN A CHAIR. PT TOLERATED BEING TRANSFERRED FROM BED TO CHAIR AND BACK. PT VERBALIZES DISCOMFORT BUT STATES THAT IT WAS MANAGEABLE. LINES WERE CHANGED. PT WAS THEN OFFERED IF SHE WANTS TO STAY IN THE CHAIR OR BACK IN BED. PT WANTED TO BE TRANSFERRED BACK IN BED. PT WAS SETTLED IN BED AND POSITIONED TO WHAT SHE FEELS COMFORTABLE. LEGS WERE ELEVATED. HOB AT ABOUT 30 DEGREES. CALL LIGHT WITHIN REACH. ST ON MONITOR. RESPIRATIONS ARE EVEN AND UNLABORED. WILL CONTINUE TO MONITOR PT.
[2018-06-02] MEDS: VANCOMYCIN 1,500 MG in DEXTROSE 5% 500 ML IV SCH (05:57)
--- NOTE | 2018-06-02 06:00 | NUR ---
FOLLOWED-UP WITH [facility] TO COME AND CHECK PT.
[2018-06-02] MEDS: HYDROmorphone 1 MG/ML AMP IVP PRN (06:01)
[2018-06-02 06:06] LABS: MAGNESIUM 1.6 mg/dL (1.8-2.4); PHOSPHORUS 5.1 mg/dL (2.5-4.9)
--- NOTE | 2018-06-02 07:18 | NUR ---
REPORT GIVEN TO MORNING RN, BARTOLO, FOR CONTINUITY OF CARE. PT IN STABLE CONDITION AT THIS TIME.
--- NOTE | 2018-06-02 07:19 | NUR ---
RECEIVED REPORT FROM WHANAU SUPPORT WORKER RN. PT RESTING IN BED. SKIN DRY AND WARM TO TOUCH. A/O X4. MAKES NEED KNOWN. LUNGS CLEAR. NO SOB OR LABORED BREATHING NOTED. S1S2 HEARD. LEFT AC 20 G. INTACT. FLUSHED WELL. BRUISE ON RFA. VANCOMYCIN RUNNING AT 300ML/HR. S/P C/S SURGICAL DRESSING DRY AND INTACT. MIMI DRAIN IN PLACE. ABDOMEN SOFT, ROUND AND TENDERNESS PRESENT. HYPOACTIVE BOWEL SOUND. ON RUIZ CATHETER DRAINING YELLOW URINE IN BAG. MINIMAL LOCHIA NOTED. ON SCD. DENIES ANY CHEST PAIN OR PAIN AT SURGICAL SITE. KEPT HOB ELEVATED. BED IN LOW POSITION LOCKED. CALL LIGHT WITHIN REACH. BED IN LOW POSITION. AT THE BEDSIDE. WILL CONTINUE TO MONITOR.
[2018-06-02] MEDS ORDERED: SODIUM PHOSPHATE 118 ML ENEM RC PRN (08:00)
[2018-06-02] MEDS ORDERED: IBUPROFEN 600 MG TAB PO PRN (08:00)
[2018-06-02] MEDS: SIMETHICONE 80 MG TAB.CHEW PO SCH ×3 (08:39→17:50)
[2018-06-02] MEDS: DOCUSATE SODIUM 100 MG GELCAP PO SCH (08:39)
[2018-06-02] MEDS: BISACODYL 5 MG TABEC PO SCH (08:39)
--- NOTE | 2018-06-02 09:06 | NUR ---
MORNING CARE DONE. PT ABLE TO SIT UP IN CHAIR WITH ASSISTANCE. TOLERATING WELL. NO SOB OR LABORED BREATHING NOTED. SATURATING 99% IN ROOM AIR. DENIES PAIN OR NAUSEA. EATING BREAKFAST SITTING IN CHAIR AT THIS TIME. AT THE BEDSIDE. PT ON CONTINUOUS MONITORING.
--- NOTE | 2018-06-02 09:12 | NUR ---
MG RESULT NOTED 1.6. DR. NOLASCO PAGED AND RECEIVED CALL BACK. ORDERED TO GIVE MAGNESIUM 2GM IV. WILL CARRY OUT THE ORDER.
[2018-06-02] MEDS ORDERED: MAG SULF 2000 MG/WATER PREMIX 50 ML IV SCH ×2 (09:23→11:01)
--- NOTE | 2018-06-02 09:29 | NUR ---
NURSING ELECTROMECHANICAL ENGINEER IN ICU. SPOKE WITH PT AND ABOUT PLAN TO ARRANGE FOR BODY OF BABY. PT SATED SHE WANTS TO SEE BABY WHEN HER FAMILY COMES IN AND WILL LET US KNOW. L&D CHARGE NURSE KAROL MADE AWARE.
[2018-06-02 10:01] LABS: ANION GAP 8.4 (8-16); CARBON DIOXIDE 28.4 mmol/L (21-32); CREATININE 1.1 mg/dL (0.6-1.3); POTASSIUM 3.8 mmol/L (3.5-5.1)
[2018-06-02 10:05] LABS: BASOPHILS % (AUTO) 0.1 % (0.0-2.0); EOSINOPHILS # (AUTO) 0.2 K/uL (0-0.4); EOSINOPHILS % (AUTO) 1.2 % (0.0-4.0); HEMATOCRIT 34.1 % (36-48); HEMOGLOBIN 11.2 g/dL (12.0-16.0); LYMPHOCYTES # (AUTO) 1.1 K/uL (2.5-16.5); LYMPHOCYTES % (AUTO) 8.5 % (20.5-51.1); MEAN CORPUSCULAR HEMOGLOBIN 29 pg (27-31); MEAN CORPUSCULAR HGB CONC 33 g/dL (33-37); MEAN CORPUSCULAR VOLUME 87.1 fL (80-94); MONOCYTES # (AUTO) 0.5 K/uL (0.8-1.0); MONOCYTES % (AUTO) 3.7 % (1.7-9.3); NEUTROPHILS # (AUTO) 11.1 K/uL (1.8-7.7); NEUTROPHILS % (AUTO) 86.5 % (42.2-75.2); PLATELET COUNT (AUTO) 206 K/uL (140-450); RED BLOOD CELL COUNT(AUTO) 3.92 MIL/uL (4.20-5.40); RED CELL DISTRIBUTION WIDTH 15.5 % (11.6-13.7); WHITE BLOOD COUNT (AUTO) 12.8 K/uL (4.8-10.8)
--- NOTE | 2018-06-02 10:09 | NUR ---
ADMINISTERED SCHEDULED MED. PT SITTING IN CHAIR. NO C/O PAIN. NO S/S OF SOB OR RESPIRATORY DISTRESS NOTED. ST ON MONITOR. SATURATING 95% IN ROOM AIR. FATHER AND AT BEDSIDE.
[2018-06-02] MEDS: ACETAMINOPHEN 325 MG TAB PO PRN ×2 (10:52→14:39)
[2018-06-02] MEDS ORDERED: FUROSEMIDE 20 MG/2 ML VIAL IVP SCH (11:01)
[2018-06-02] MEDS ORDERED: POTASSIUM CHLORIDE 10 MEQ TABER PO SCH (11:02)
--- NOTE | 2018-06-02 11:20 | NUR ---
PT SPO2 FLUCTUATING 92-89%. PLACED PT BACK ON O2 AT 2 LTR MIN. NO ACUTE RESPIRATORY DISTRESS NOTED. PT DENIES DIFFICULTY BREATHING OR CHEST PAIN. HOB ELEVATED.
--- NOTE | 2018-06-02 11:40 | NUR ---
DR. NOLASCO IN. UPDATED PATIENT CONDITION. PT EVALUATED BY DR. NOLASCO. WILL F/U ORDER.
--- NOTE | 2018-06-02 12:31 | NUR ---
AT 1150 CALLED MATT PHONE #[phone], LEFT MESSAGE. CALLED FATHER ANGEL FROM [facility] AT 1200 #[phone]. FATHER AT BEDSIDE, SACRAMENT OF THE SICK GIVEN TO THE PATIENT.
--- NOTE | 2018-06-02 12:49 | NUR ---
VANCOMYCIN WILL BE GIVEN CONSULTING PHARMACY AFTER VANCO TROUGH RESULT. PHARMACY AWARE.
[2018-06-02] MEDS: ONDANSETRON 4 MG/2 ML VIAL IVP PRN (13:06)
[2018-06-02] MEDS: LORazepam 1 MG TAB PO PRN (13:13)
--- NOTE | 2018-06-02 13:29 | NUR ---
PT C/O NAUSEA AND ANXIETY. STATED THAT SHE IS HAVING ANXIETY OF HAVING BABY IN ROOM TO BE SEEN. WANTS HER BABY TO BE SEEN BY HER FAMILY BUT SHE DOES NOT WANT TO SEE BABY. ALSO, PT DOES NOT WANT FAMILY SEE BABY IN ICU. WANTS ANOTHER AREA TO BE ARRANGED FOR FAMILY TO SEE THE BABY. RN LEAN AWARE. PSYCHOLOGICAL SUPPORT PROVIDED TO THE PATIENT. ADMINISTERED ZOFRAN AND ATIVAN PER ORDER. ON CONTINUOUS MONITORING.
--- NOTE | 2018-06-02 13:30 | NUR ---
PT NOTED WITH FEVER 102 DEGREE F. TYLENOL WAS GIVEN 2 HOURS AGO. COOLING MEASURES APPLIED. DR. NOLASCO AWARE. WILL CONTINUE TO MONITOR.
[2018-06-02] MEDS ORDERED: MORPHINE SULFATE 2 MG/ML SYR IVP PRN (13:45)
--- NOTE | 2018-06-02 14:50 | NUR ---
PT NOTED WITH FEVER 101 DEGREE F. REMOVED EXTRA CLOTHES. COLD SPONGING PROVIDED. ADMINISTERED TYLENOL PER ORDER. WILL CONTINUE TO MONITOR.
--- NOTE | 2018-06-02 15:38 | NUR ---
MIMI DRAIN COLLECTED AND TAKEN TO THE LAB.
--- NOTE | 2018-06-02 18:02 | NUR ---
ASSISTED TO SIT UP BEDSIDE COMMODE. TOLERATING ACTIVITIES. NO SOB OR ACUTE RESPIRATORY DISTRESS NOTED. ST ON MONITOR. AT BEDSIDE. WILL CONTINUE TO MONITOR.
--- NOTE | 2018-06-02 18:34 | NUR ---
ASSISTED TO BED. KADE CARE PROVIDED. HR 107. NO SOB OR ACUTE RESPIRATORY DISTRESS NOTED. NO C/O CHEST PAIN OR ABDOMINAL PAIN. CONTINUE ON O2 AT 2 LTR/MIN. NO C/O CHEST PAIN. NO C/O ABDOMINAL PAIN. AT BEDSIDE. WILL CONTINUE TO MONITOR.
--- NOTE | 2018-06-02 19:20 | NUR ---
REPORT GIVEN TO SPORTS BROADCASTING INTERNSHIP RN FOR CONTINUITY OF CARE.
--- NOTE | 2018-06-02 19:30 | NUR ---
RECEIVED REPORT FROM MORNING RN, BARTOLO, FOR CONTINUITY OF CARE. VS STABLE AT THIS TIME. PT AFEBRILE. AOX4. ABLE TO MAKE NEEDS KNOWN AND FOLLOW SIMPLE COMMANDS. PERRL. PT ABLE TO MOVE EXTREMITIES. LUNG SOUNDS CLEAR. RESPIRATIONS ARE EVEN AND UNLABORED. DENIES SOB. PT ON OXYGEN AT 2L/MIN VIA NC. S1+S2 HEARD. ST ON MONITOR. PULSES ARE PALPABLE IN ALL EXTREMITIES. ABDOMEN ROUND, SOFT, AND NONDISTENDED. ABD DRESSING CLEAN, DRY AND INTACT. MIMI DRAIN IN PLACE. SCANT DRAINAGE NOTED. DRAINED FLUID WAS CLEAR, VERY LIGHT YELLOW. RUIZ CATHETER STILL IN PLACE. DRAINING CLEAR AND YELLOW URINE. PT DENIES ANY DISCOMFORT. SKIN IS DRY AND WARM TO TOUCH. SCD IN PLACE. PT HAS PERIPHERAL IV ACCESS ON LEFT HAND 22G. LINE IN PATENT, INTACT AND ASYMPTOMATIC. BED AT LOW POSITION. HOB AT 30 DEGREES. SAFETY PRECAUTIONS ARE IN PLACE AND CALL LIGHT WITHIN REACH.
[2018-06-02] MEDS ORDERED: VANCOMYCIN 1GM/DEXT 5% PREMIX 200 ML IV SCH (21:00)
[2018-06-02 21:47] LABS: T4 (THYROXINE) 4.7 ug/dL (4.5 - 12.0)
--- NOTE | 2018-06-02 21:50 | NUR ---
L&D RN CAME IN TO CHECK ON PT.
--- NOTE | 2018-06-02 22:08 | NUR ---
VS STABLE AT THIS TIME. BEDSIDE MONITOR SHOWS SR. PT EYES ARE CLOSED. RESPIRATIONS ARE EVEN AND UNLABORED. PT HAS ADEQUATE URINARY OUTPUT AT THIS TIME. PT CURRENTLY DENIES FEELING ANY PAIN.
[2018-06-03] VITALS (12 sets, daily range): BP systolic 89–150; BP diastolic 38–84
[2018-06-03] MEDS: PIPER/TAZO 3.375GM/D5W PREMIX 50 ML IV SCH ×4 (00:09→17:38)
--- NOTE | 2018-06-03 00:10 | NUR ---
VS STABLE AT THIS TIME. PT GOES BETWEEN SINUS RHYTHM TO SINUS TACHYCARDIA. PT DENIES FEELING ANY PAIN OF DISCOMFORT AT THIS TIME. SHE STATES THAT SHE IS ABLE TO GET SOME SLEEP. RESPIRATIONS REMAIN EVEN AND UNLABORED.
[2018-06-03] MEDS: DILTIAZEM 30 MG TAB PO SCH ×4 (00:13→17:39)
--- NOTE | 2018-06-03 02:10 | NUR ---
PT EYES ARE CLOSED. AROUSABLE TO NAME. PT DENIES ANY PAIN OR SOB AT THIS TIME. SR ON MONITOR. BP WNL. RESPIRATIONS ARE EVEN AND UNLABORED. PT STILL ON OXYGEN AT 2L/MIN VIA NC. REPOSITIONED AND PT ASSISTED.
--- NOTE | 2018-06-03 04:03 | NUR ---
RESPIRATIONS ARE EVEN AND UNLABORED. PT WAS REQUESTING FOR ANOTHER BLANKET AND IT WAS PROVIDED. RUIZ CATHETER STILL SECURE IN PLACE.VS STABLE. PT ST ON MONITOR AT HIGH 100S.
[2018-06-03] MEDS: ONDANSETRON 4 MG/2 ML VIAL IVP PRN ×2 (04:51→18:15)
--- NOTE | 2018-06-03 04:51 | NUR ---
PT WAS GIVEN ZOFRAN DUE TO AN EPISODE OF N/V X1. OUTPUT WAS WHITE, LIGHT YELLOW IN COLOR. PT STATES THAT SHE WOULD USUALLY FEEL NAUSEATED AT THIS TIME OF NIGHT. KEPT HOB AT 30 DEGREES. PT STATES SHE FEELS BETTER POST EPISODE ON VOMITING.
--- NOTE | 2018-06-03 05:30 | NUR ---
PM CARE PROVIDED TO PT. RUIZ CATHETER CARE. PT WAS ABLE TO TURN AND ASSIST IN CHANGING WITH MINIMAL ASSISTANCE. PT STATES THAT SHE NO LONGER FEEL NAUSEOUS. RESPIRATIONS ARE EVEN AND UNLABORED. VS WNL. PT TACHYCARDIC AT LOW TO HIGH 100S. PT DENIES ANY DISCOMFORT.
[2018-06-03 06:39] LABS: MAGNESIUM 1.7 mg/dL (1.8-2.4); PHOSPHORUS 4.1 mg/dL (2.5-4.9)
[2018-06-03 06:40] LABS: ANION GAP 12.1 (8-16); CARBON DIOXIDE 26.1 mmol/L (21-32); CREATININE 0.8 mg/dL (0.6-1.3); POTASSIUM 3.2 mmol/L (3.5-5.1)
--- NOTE | 2018-06-03 07:20 | NUR ---
RECEIVED REPORT FROM WIRE RIGGER RN AT BEDSIDE. PT IS AAOX4, ABLE TO FOLLOW COMMANDS AND MAKE NEEDS KNOWN, VSS, DENIES PAIN, NO S/S OF DISTRESS, CLEAR LUNG SOUNDS CARMINA, ON O2 AT 2L VIA NC, O2 SAT 93% ON RA. DENIES CHEST PAIN, ST ON RECREATION THERAPIST, LARGE ROUND ABDOMEN WITH ACTIVE BOWEL SOUNDS, FUNDUS FIRM TO UMBILICAL AREA, TENDERNESS NOTED, SURGICAL DRESSING SITE IS INTACT, CLEAN AND DRY, MIMI DRAIN IN PLACE WITH SCANT YELLOW DRAINAGE. DENIES N/V. RUIZ CATHETER IN PLACE WITH CLEAR YELLOW URINE VIA GRAVITY, SMALL AMOUNT OF LIGHT MINIMAL LOCHIA NOTED TO VAGINAL PAD. SKIN IS WARM AND DRY IN TOUCH, ABLE TO MOVE ALL EXTREMITIES, SCD'S IN PLACE. IV SITE TO LEFT HAND 22GA, PATENT AND SL. HOB ELEVATED TO 30 DEGREES, SAFETY MEASURES IN PLACE, CALL LIGHT WITHIN REACH, OFFERED BREAKFAST, PT STATED WOULD TAKE IT LATER, WILL CONTINUE TO MONITOR.
--- NOTE | 2018-06-03 08:00 | NUR ---
L&D NURSE CAME IN TO CHECK PT AT BEDSIDE, PT IS RESTING IN BED, HAS NO DISCOMFORT AT THIS TIME.
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
[2018-06-03 08:04] LABS: BASOPHILS % (AUTO) 0.1 % (0.0-2.0); EOSINOPHILS # (AUTO) 0.2 K/uL (0-0.4); EOSINOPHILS % (AUTO) 1.3 % (0.0-4.0); HEMATOCRIT 33.8 % (36-48); LYMPHOCYTES # (AUTO) 0.8 K/uL (2.5-16.5); LYMPHOCYTES % (AUTO) 5.9 % (20.5-51.1); MEAN CORPUSCULAR HEMOGLOBIN 28 pg (27-31); MEAN CORPUSCULAR HGB CONC 32 g/dL (33-37); MEAN CORPUSCULAR VOLUME 86.5 fL (80-94); MONOCYTES # (AUTO) 0.8 K/uL (0.8-1.0); MONOCYTES % (AUTO) 5.5 % (1.7-9.3); NEUTROPHILS % (AUTO) 87.2 % (42.2-75.2); PLATELET COUNT (AUTO) 247 K/uL (140-450); RED BLOOD CELL COUNT(AUTO) 3.91 MIL/uL (4.20-5.40); WHITE BLOOD COUNT (AUTO) 13.8 K/uL (4.8-10.8)
[2018-06-03] MEDS: VANCOMYCIN 1GM/DEXT 5% PREMIX 200 ML IV SCH ×2 (08:50→21:08)
[2018-06-03] MEDS: DOCUSATE SODIUM 100 MG GELCAP PO SCH (08:51)
[2018-06-03] MEDS: BISACODYL 5 MG TABEC PO SCH (08:51)
[2018-06-03] MEDS: SIMETHICONE 80 MG TAB.CHEW PO SCH ×3 (08:51→17:39)
--- NOTE | 2018-06-03 09:00 | NUR ---
SCHEDULED MEDICATION GIVEN, PT TOLERATED WELL. DENIES N/V. FAMILY BROUGHT IN SOME FOOD FOR PT, PT TOOK A LITTLE BIT.
[2018-06-03] MEDS ORDERED: KCL 20 MEQ/WATER INJ PREMIX 200 ML IV ONE (10:55)
[2018-06-03] MEDS ORDERED: MAG SULF 2000 MG/WATER PREMIX 50 ML IV SCH (11:00)
--- NOTE | 2018-06-03 11:00 | NUR ---
DR. SUH CAME IN TO SEE PT AT BEDSIDE, WILL FOLLOW UP WITH NEW ORDERS.
--- NOTE | 2018-06-03 11:50 | NUR ---
06/03/18 RD INITIAL ASSESSMENT COMPLETED PLEASE REFER TO NUTRITION ASSESSMENT UNDER CARE ACTIVITY FOR ESTIMATED NUTRITIONAL NEEDS. 1. CONTINUE [facility] SOFT DIET TOLERATED 2. DISCONTINUE LOW PHOSPHORUS DIET WHEN MEDICALLY APPROPRIATE 3. ENCOURAGED PT TO INCREASE PO INTAKE 4. RECOMMEND HEALTH SHAKE BID 5. RD TO FOLLOW-UP 2-3 DAYS, HIGH RISK MOI HAILE RD
--- NOTE | 2018-06-03 12:00 | NUR ---
NO S/S OF DISTRESS, VSS, DENIES PAIN, PT'S AT BEDSIDE, OFFERED LUNCH, WILL CONTINUE TO MONITOR
[2018-06-03] MEDS ORDERED: POTASSIUM CHLORIDE 40 MEQ, LIDOCAINE 1% 25 MG in NACL 0.9% 250 ML IV SCH (13:00)
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
--- NOTE | 2018-06-03 13:27 | NUR ---
PT IS CRYING, COMFORT AND EMOTIONAL SUPPORT OFFERED
--- NOTE | 2018-06-03 14:00 | NUR ---
PT IS UP TO WALK WITH ASSISTANCE AROUND THE ICU, PT TOLERATED WELL WITH WALKING, NO S/S OF DISTRESS, DENIES ANY PAIN.
--- NOTE | 2018-06-03 16:00 | NUR ---
PM CARE AND F/C CARE PROVIDED WITH ASSIST, VSS, DENIES PAIN, NO S/S OF DISTRESS, ABLE TO REPOSITION SELF.
[2018-06-03] MEDS: ACETAMINOPHEN 325 MG TAB PO PRN (18:15)
--- NOTE | 2018-06-03 18:15 | NUR ---
PT C/O NAUSEA, TEMP 100.5F, ZOFRAN AND TYLENOL GIVEN, WILL RECHECK LATER.
--- NOTE | 2018-06-03 18:42 | NUR ---
DR. SCHOFIELD CAME IN TO SEE PT AT BEDSIDE, WILL FOLLOW UP WITH ORDERS.
--- NOTE | 2018-06-03 19:20 | NUR ---
RECEIVED REPORT FROM MORNING NURSE. PATIENT AAO X 4, ABLE TO FOLLOW COMMANDS. NO ACUTE DISTRESS NOTED. RESTING ON BED, FAMILY AT BEDSIDE. BILATERAL LUNGS SOUND CLEAR, O2 2L/M VIA NC. ST ON THE MONITOR WITH HR 110'S. DENIES ANY PAIN OR DISCOMFORT AT THIS TIME. ACTIVE BOWEL SOUND FROM 4QUADS NOTED. SURGICAL DRESSING TO ABDOMEN WITH S/P C SECTION WITH MIMI DRAIN IN PLACE. MINIMAL CLEAR RED COLOR DRAINAGE NOTED, LESS THAN 5CC. F/C IN PLACE WITH CLEAR YELLOW URINE NOTED. PERIPHERAL LINE TO LEFT HAND 22G NOTED. HOB ELEVATED, BED IN LOW POSITION. CALL LIGHT WITHIN REACH. WILL CONTINUE TO MONITOR.
--- NOTE | 2018-06-03 19:25 | NUR ---
REPORT GIVEN TO ILLUMINATING ENGINEER NURSE FOR CONTINUE OF CARE, PT IS IN STABLE CONDITION AT THIS TIME.
--- NOTE | 2018-06-03 20:00 | NUR ---
DR. MONET AT BEDSIDE TO ASSESS AND DISCUSS WITH PATIENT AND FAMILY. WILL FOLLOW ORDERS.
--- NOTE | 2018-06-03 21:10 | NUR ---
ADMINISTERED IV ABX, NO ACUTE DISTRESS NOTED. DENIES PAIN. FAMILY AT BEDSIDE. WILL CONTINUE TO MONITOR.
[2018-06-04] VITALS (9 sets, daily range): BP systolic 97–129; BP diastolic 42–80
[2018-06-04] MEDS ORDERED: DILTIAZEM 30 MG TAB ONE ×2 (00:22→05:20)
[2018-06-04] MEDS: PIPER/TAZO 3.375GM/D5W PREMIX 50 ML IV SCH ×5 (00:36→23:09)
[2018-06-04] MEDS: LORazepam 1 MG TAB PO PRN (00:37)
[2018-06-04] MEDS: DILTIAZEM 30 MG TAB PO SCH ×5 (00:37→23:09)
--- NOTE | 2018-06-04 00:40 | NUR ---
ADMINISTERED CARDIZEM AND ZOSYN ORDERED. PATIENT IN SLEEP WITH NO ACUTE DISTRESS. DENIES PAIN. AT BEDSIDE. WILL CONTINUE TO MONITOR.
--- NOTE | 2018-06-04 03:00 | NUR ---
NO ACUTE DISTRESS NOTED. DENIES PAIN AT THIS TIME. WILL CONTINUE TO MONITOR.
--- NOTE | 2018-06-04 05:40 | NUR ---
ADMINISTERED CARDIZEM AND IV ABX ORDERED. NO ACUTE DISTRESS NOTED. DENIES PAIN AT THIS TIME.
[2018-06-04 06:19] LABS: BASOPHILS % (AUTO) 0.2 % (0.0-2.0); EOSINOPHILS # (AUTO) 0.3 K/uL (0-0.4); EOSINOPHILS % (AUTO) 3.2 % (0.0-4.0); HEMATOCRIT 30.7 % (36-48); HEMOGLOBIN 10.4 g/dL (12.0-16.0); LYMPHOCYTES # (AUTO) 1.5 K/uL (2.5-16.5); LYMPHOCYTES % (AUTO) 14.6 % (20.5-51.1); MEAN CORPUSCULAR HEMOGLOBIN 29 pg (27-31); MEAN CORPUSCULAR HGB CONC 34 g/dL (33-37); MEAN CORPUSCULAR VOLUME 86.1 fL (80-94); MONOCYTES % (AUTO) 10.3 % (1.7-9.3); NEUTROPHILS # (AUTO) 7.3 K/uL (1.8-7.7); NEUTROPHILS % (AUTO) 71.7 % (42.2-75.2); PLATELET COUNT (AUTO) 264 K/uL (140-450); RED BLOOD CELL COUNT(AUTO) 3.57 MIL/uL (4.20-5.40); RED CELL DISTRIBUTION WIDTH 14.9 % (11.6-13.7); WHITE BLOOD COUNT (AUTO) 10.1 K/uL (4.8-10.8)
--- NOTE | 2018-06-04 06:40 | NUR ---
PROVIDED MORNING CARE, SMALL AMOUNT BLEEDING FROM VAGINAL. 3ML CLEAR RED COLOR DRAINAGE FROM MIMI DRAIN BAG. WILL CONTINUE TO MONITOR.
[2018-06-04 06:46] LABS: ANION GAP 8.3 (8-16); CARBON DIOXIDE 28.1 mmol/L (21-32); CREATININE 0.7 mg/dL (0.6-1.3); POTASSIUM 3.4 mmol/L (3.5-5.1)
[2018-06-04 06:47] LABS: MAGNESIUM 1.6 mg/dL (1.8-2.4); PHOSPHORUS 3.1 mg/dL (2.5-4.9)
--- NOTE | 2018-06-04 07:10 | NUR ---
RECEIVED REPORT FROM JUAN A BOGGS
--- NOTE | 2018-06-04 08:00 | NUR ---
PATIENT ALERT ORIENTEDX4, REMOVED NASAL CANNULA AND NOW ON ROOM AIR SO2>94%, SINUS TACHYCARDIA IN THE MONITOR 118 BPM, NO COMPLAINTS OF ANY PAIN, ABDOMINAL DRESSING CLEAN DRY AND INTACT, WITH MIMI TO BULB SUCTION ON LEFT SIDE OF ABDOMEN-VERY MINIMAL LIGHT PINK OUTPUT NOTED. PATIENT SERVED HER BREAKFAST TRAY AND ABLE TO EAT INDEPENDENTLY WITH HEAD OF BED UP, WITH RUIZ CATHETER AND NOTED CLEAR YELLOW URINE, PATIENT HAVING MINIMAL VAGINAL BLEEDING, NO OTHER WOUNDS, PERIPHERAL LINE GAUGE 22 AT LEFT HAND-SALINE LOCKED.CALL PAINTER WITHIN REACH
--- NOTE | 2018-06-04 08:43 | NUR ---
PAGED DR. SUH THROUGH HIS EXCHANGE TO INFORM OF TODAY'S POTASSIUM, MAGNESIUM. AWAITING CALLL BACK
[2018-06-04] MEDS ORDERED: MAG SULF 2000 MG/WATER PREMIX 50 ML IV SCH (09:00)
--- NOTE | 2018-06-04 09:00 | NUR ---
PATIENT WALKED AROUND THE UNIT 3X TIMES. RN ON STAND BY ASSIST ONLY, PATIENT INDEPENDENT, TOLERATED, TELEMETRY BOX ATTACHED.
[2018-06-04] MEDS: BISACODYL 5 MG TABEC PO SCH (09:09)
[2018-06-04] MEDS: VANCOMYCIN 1GM/DEXT 5% PREMIX 200 ML IV SCH ×2 (09:09→20:32)
[2018-06-04] MEDS: SIMETHICONE 80 MG TAB.CHEW PO SCH ×3 (09:10→17:18)
[2018-06-04] MEDS: DOCUSATE SODIUM 100 MG GELCAP PO SCH (09:10)
[2018-06-04] MEDS ORDERED: POTASSIUM CHLORIDE 40 MEQ, LIDOCAINE MPF 1% - 5 mL VIAL 25 MG in NACL 0.9% 250 ML IV SCH (09:30)
--- NOTE | 2018-06-04 10:00 | NUR ---
PATIENT ABLE TO PERFORM INCENTIVE SPIROMETRY 10X AND REACHED 1,000 JOSÉ. ENCOURAGED PATIENT TO KEEP DOING IT EVERY WAKING HOURS AND INFORMED HER ABOUT IT'S INDICATION. PATIENT VERBALIZED UNDERSTANDING
--- NOTE | 2018-06-04 10:30 | NUR ---
POTASSIUM CORRECTION NOT YET GIVEN PATIENT HAS ONE PERIPHERAL LINE. PATIENT HAS GENERALIZED NON PITTING EDEMA AND A HARD STICK. VANCOMYCIN IV GIVEN FOLLOWED BY MAGNESIUM IV WHICH WILL RUN FOR 2 HOURS. WILL CONTINUE TO MONITOR
--- NOTE | 2018-06-04 12:15 | NUR ---
SERVED PATIENT HER LUNCH TRAY. PATIENT VERBALIZED SHE WILL EAT AT A LATER TIME. WILL CONTINUE TO MONITOR. PATIENT WENT BACK TO SLEEP. CALL PAINTER WITHIN REACH
--- NOTE | 2018-06-04 13:17 | NUR ---
Ordered potassium correction already infusing. Patient now awake, sitting up in bed and having lunch. Call chand within reach, needs attended
--- NOTE | 2018-06-04 13:20 | NUR ---
DR. SUH AT BEDSIDE. ORDERS RECEIVED TO DOWNGRADE PATIENT TO TELEMETRY, OK TO DISCONTINUE RUIZ AND PSYCHIATRIC EVALUATION
--- NOTE | 2018-06-04 13:39 | NUR ---
SPOKE TO DR. WILSON RE: PSYCH. CONSULT. WILL SEE PT TONIGHT OR TOMORROW.
--- NOTE | 2018-06-04 16:15 | NUR ---
RUIZ CATHETER REMOVED AFTER INFORMING PATIENT AND VERIFYING ORDERS. PATIENT TOLERATED. PATIENT STILL HAVING MINIMAL RED VAGINAL BLEEDING. DISPOSABLE UNDERWEAR (PADDED) APPLIED FOR NOW PATIENT WILL TAKE A WALK
--- NOTE | 2018-06-04 17:00 | NUR ---
PATIENT WALKED 2X AROUND THE UNIT. TELEMETRY BOX ATTACHED. PATIENT TOLERATED
--- NOTE | 2018-06-04 17:30 | NUR ---
PATIENT PERFORMED HYGIENIC CARES INDEPENDENTLY, GOWN CHANGE ASSISTED BY RN
--- NOTE | 2018-06-04 18:05 | NUR ---
PATIENT VERBALIZED SHE'LL EAT DINNER AFTER ROOM TRANSFER TO TELEMETRY, BP 127/77 HEART RATE 114, SO2 96%, NO COMPLAINTS OF PAIN
--- NOTE | 2018-06-04 18:15 | NUR ---
PATIENT TRANSFERRED TO TELEMETRY ROOM 115 WITH HER BELONGINGS. REPORT GIVEN TO RECEIVING DAY SHIFT RN Addendum: 06/04/18 at 1843 by Kirstin Navarro RN 1815 HOURS INFORMED RECEIVING RN TO RESTART ANTIBIOTIC INFUSING IT WAS INTERRUPTED DURING TRANSFER (AKBAR)
--- NOTE | 2018-06-04 19:30 | NUR ---
RECEIVED REPORT FROM DAYSHIFT NURSE AT BEDSIDE FOR CONTINUITY OF CARE. PT AAOX4. PT IV NOTED L WRIST 22G NS TKO. NO SOB NO S/S OF DISTRESS ON RA. BED LOWERED CALL LIGHT WITHIN REACH WILL CONTINUE TO MONITOR.
--- NOTE | 2018-06-04 20:00 | NUR ---
PT HAD FEVER 100.7 GAVE TYLENOL
[2018-06-04] MEDS: ACETAMINOPHEN 325 MG TAB PO PRN (20:32)
--- NOTE | 2018-06-04 20:41 | NUR ---
PT HAD BOWEL MOVEMENT TODAY AND URINATED AFTER RUIZ D/C.
--- NOTE | 2018-06-04 21:30 | NUR ---
CARDIZEM WERE PLACED IN NON ADMIN SECTION D/T MEDS FROM ICU. NOT A TELE ORDER/
[2018-06-05] VITALS: BP 119/76
[2018-06-05 04:00] VITALS: BP 109/69
[2018-06-05] MEDS: DILTIAZEM 30 MG TAB PO SCH ×3 (05:14→19:08)
[2018-06-05 06:27] LABS: BASOPHILS # (AUTO) 0.1 K/uL (0.00-0.22); BASOPHILS % (AUTO) 0.5 % (0.0-2.0); EOSINOPHILS # (AUTO) 0.4 K/uL (0-0.4); EOSINOPHILS % (AUTO) 3.7 % (0.0-4.0); HEMATOCRIT 31.6 % (36-48); HEMOGLOBIN 10.6 g/dL (12.0-16.0); LYMPHOCYTES # (AUTO) 1.8 K/uL (2.5-16.5); LYMPHOCYTES % (AUTO) 17.3 % (20.5-51.1); MEAN CORPUSCULAR HEMOGLOBIN 29 pg (27-31); MEAN CORPUSCULAR HGB CONC 34 g/dL (33-37); MEAN CORPUSCULAR VOLUME 85.3 fL (80-94); MONOCYTES # (AUTO) 1.5 K/uL (0.8-1.0); MONOCYTES % (AUTO) 14.6 % (1.7-9.3); NEUTROPHILS # (AUTO) 6.6 K/uL (1.8-7.7); NEUTROPHILS % (AUTO) 63.9 % (42.2-75.2); PLATELET COUNT (AUTO) 302 K/uL (140-450); RED CELL DISTRIBUTION WIDTH 14.8 % (11.6-13.7); WHITE BLOOD COUNT (AUTO) 10.3 K/uL (4.8-10.8)
[2018-06-05 06:59] LABS: ANION GAP 8.7 (8-16); CARBON DIOXIDE 24.7 mmol/L (21-32); CREATININE 0.6 mg/dL (0.6-1.3); POTASSIUM 3.4 mmol/L (3.5-5.1)
[2018-06-05 07:06] LABS: MAGNESIUM 1.6 mg/dL (1.8-2.4); PHOSPHORUS 3.6 mg/dL (2.5-4.9)
--- NOTE | 2018-06-05 07:16 | NUR ---
ENDORSED REPORT TO DAYSHIFT NURSE AT BEDSIDE FOR CONTINUITY OF CARE.
--- NOTE | 2018-06-05 07:20 | NUR ---
RECEIVED PT FROM GEAR HOBBER NURSEROBERT, PT IS AWAKE WITH BOYFRIEND ON THE BEDSIDE, SIDE RAILS UP AND CALL LIGHT WITHIN REACH, PT HAS AN IV LINE ON THE LEFT WRIST G.22 ON TKO, PT DENIES PAIN AND NO SOB NOTED, MIMI BULB IN PLACE WITH 5ML DRAIN. NO SIGN OF DISTRESS NOTED AND WILL CONTINUE TO MONITOR PT.
[2018-06-05 08:00] VITALS: BP 137/73
[2018-06-05] MEDS: SIMETHICONE 80 MG TAB.CHEW PO SCH ×3 (09:41→16:23)
[2018-06-05] MEDS: BISACODYL 5 MG TABEC PO SCH (09:41)
[2018-06-05] MEDS: DOCUSATE SODIUM 100 MG GELCAP PO SCH (09:41)
--- NOTE | 2018-06-05 10:30 | NUR ---
PERIPHERAL LINE WAS INFILTRATED, A NEW IV LINE WAS STARTED ON THE RT AC G. 18, INTACT.
[2018-06-05] MEDS: VANCOMYCIN 1GM/DEXT 5% PREMIX 200 ML IV SCH (11:43)
--- NOTE | 2018-06-05 11:45 | NUR ---
VANCOMYCIN WAS STARTED TO PT NOW. WILL MONITOR PT.
[2018-06-05 12:00] VITALS: BP 126/76
--- NOTE | 2018-06-05 12:10 | NUR ---
PT IS AWAKE AND EATING HER LUNCH, VITAL SIGNS TAKEN AND IS WITHIN NORMAL LIMIT, ORAL MEDICATIONS GIVEN AND PT TOLERATED IT AND NO SIGN OF DISTRESS NOTED. WILL MONITOR PT.
--- NOTE | 2018-06-05 13:51 | NUR ---
PT IS AWAKE, LYING ON THE BED, WATCHING TV, AND MAGNESIUM RIDER WAS STARTED AT 25ML/HR, NO SIGN OF DISTRESS NOTED AND WILL CONTINUE TO MONITOR PT.
[2018-06-05] MEDS ORDERED: MAG SULF 2000 MG/WATER PREMIX 50 ML IV SCH (14:00)
[2018-06-05] MEDS ORDERED: ZOLPIDEM 5 MG TAB PO PRN (14:35)
[2018-06-05 16:00] VITALS: BP 114/68
--- NOTE | 2018-06-05 16:25 | NUR ---
PT IS AWAKE AND POTASSIUM CHLORIDE RIDER WAS GIVEN VIA IVPB. WILL MONITOR PT
[2018-06-05] MEDS ORDERED: POTASSIUM CHLORIDE 40 MEQ, LIDOCAINE 1% 25 MG in NACL 0.9% 250 ML IV SCH (17:00)
[2018-06-05] MEDS ORDERED: VANCOMYCIN 1GM/DEXT 5% PREMIX 200 ML IV SCH (17:00)
--- NOTE | 2018-06-05 19:25 | NUR ---
ENDORSED PT TO WASTE BALER NURSEROBERT FOR CONTINUITY OF CARE, PT IS STABLE AT THIS TIME, WITH FAMILY ON THE BEDSIDE.
--- NOTE | 2018-06-05 19:30 | NUR ---
RECEIVED REPORT FROM DAYSHIFT NURSE AT BEDSIDE FOR CONTINUITY OF CARE. PT AAOX4. PT IV NOTED RAC 18G NS TKO. NO SOB NO S/S OF DISTRESS ON RA. BED LOWERED CALL LIGHT WITHIN REACH WILL CONTINUE TO MONITOR
[2018-06-05 20:00] VITALS: BP 131/71
[2018-06-05] MEDS: PIPER/TAZO 3.375GM/D5W PREMIX 50 ML IV SCH (22:11)
[2018-06-06] VITALS (7 sets, daily range): BP systolic 111–127; BP diastolic 64–78
[2018-06-06] MEDS: DILTIAZEM 30 MG TAB PO SCH ×4 (01:05→17:18)
[2018-06-06] MEDS: PIPER/TAZO 3.375GM/D5W PREMIX 50 ML IV SCH ×4 (01:05→17:18)
--- NOTE | 2018-06-06 07:29 | NUR ---
ENDORSED REPORT TO DAYSHIFT NURSE AT BEDSIDE FOR CONTINUITY OF CARE.
--- NOTE | 2018-06-06 07:30 | NUR ---
Received report from pm nurse Rosario. Pt awake, verbally responsive, respirations even & nonlabored, no c/o discomfort. Pt's boyfriend at bedside. Right ac IV intact & asymptomatic. Call light within reach.
[2018-06-06 08:06] LABS: BASOPHILS % (AUTO) 0.4 % (0.0-2.0); EOSINOPHILS # (AUTO) 0.4 K/uL (0-0.4); EOSINOPHILS % (AUTO) 3.3 % (0.0-4.0); HEMATOCRIT 32.7 % (36-48); HEMOGLOBIN 10.6 g/dL (12.0-16.0); LYMPHOCYTES # (AUTO) 2.1 K/uL (2.5-16.5); LYMPHOCYTES % (AUTO) 18.7 % (20.5-51.1); MEAN CORPUSCULAR HEMOGLOBIN 28 pg (27-31); MEAN CORPUSCULAR HGB CONC 32 g/dL (33-37); MEAN CORPUSCULAR VOLUME 86.4 fL (80-94); MONOCYTES # (AUTO) 1.4 K/uL (0.8-1.0); MONOCYTES % (AUTO) 12.8 % (1.7-9.3); NEUTROPHILS # (AUTO) 7.3 K/uL (1.8-7.7); NEUTROPHILS % (AUTO) 64.8 % (42.2-75.2); PLATELET COUNT (AUTO) 371 K/uL (140-450); RED BLOOD CELL COUNT(AUTO) 3.78 MIL/uL (4.20-5.40); RED CELL DISTRIBUTION WIDTH 14.7 % (11.6-13.7); WHITE BLOOD COUNT (AUTO) 11.2 K/uL (4.8-10.8)
[2018-06-06 08:19] LABS: ANION GAP 9.9 (8-16); CARBON DIOXIDE 24.6 mmol/L (21-32); CREATININE 0.6 mg/dL (0.6-1.3); POTASSIUM 3.5 mmol/L (3.5-5.1)
[2018-06-06 08:23] LABS: MAGNESIUM 1.4 mg/dL (1.8-2.4); PHOSPHORUS 4.1 mg/dL (2.5-4.9)
[2018-06-06] MEDS: SIMETHICONE 80 MG TAB.CHEW PO SCH ×3 (09:13→16:11)
[2018-06-06] MEDS: DOCUSATE SODIUM 100 MG GELCAP PO SCH (09:13)
[2018-06-06] MEDS: BISACODYL 5 MG TABEC PO SCH (09:13)
--- NOTE | 2018-06-06 11:45 | NUR ---
Dr Hendricks at bedside assessing pt.
[2018-06-06] MEDS ORDERED: MAGNESIUM OXIDE 400 MG TAB PO SCH (13:00)
[2018-06-06] MEDS ORDERED: POTASSIUM CHLORIDE 10 MEQ TABER PO SCH (13:00)
--- NOTE | 2018-06-06 13:10 | NUR ---
Spoke to Dr. Graham re: e-coli from MIMI drain. Per Dr Graham, he will come to see pt today. Cont with current orders.
--- NOTE | 2018-06-06 13:46 | NUR ---
06/06/18 RD FOLLOW UP COMPLETED PLEASE REFER TO NUTRITION ASSESSMENT UNDER CARE ACTIVITY FOR ESTIMATED NUTRITIONAL NEEDS. 1. RECOMMEND REGULAR DIET TOLERATED 2. RD TO FOLLOW-UP 3-5 DAYS, MODERATE RISK MOI HAILE RD
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
--- NOTE | 2018-06-06 14:09 | NUR ---
Link Trainer Teacher Note: I met with patient at bedside. Per patient, she is planning to seek counseling/mental health services post discharge. I provided her with a list of counseling/mental health services. She denied hx of menta [employer]. I explained to her that it is important to find a therapist/psychiatrist/psychologist that she feels comfortable with. I also informed her of the importance of determining whether she prefers to have one on one counseling and/or group support services. She verbalized understanding and thanked me for my assistance. She is planning to follow up with a physician at [facility] post discharge. She requested a verification of hospitalization letter for her brother Obey Go. I provided her with letter. She does not have any questions or concerns at this time. Addendum: 06/06/18 at 1421 by Mercedes Chris SS She denied hx of mental health.
--- NOTE | 2018-06-06 19:21 | NUR ---
Report given to pm nurse Vivian.
--- NOTE | 2018-06-06 19:22 | NUR ---
RECEIVED BEDSIDE REPORT FROM DAY SHIFT NURSE ORESTES RN, PT STABLE, NO DISTRESS NOTED, IV TO R AC 22G PATENT, INTACT. INFUSING NS @ 10ML/HR, INFUSING WELL, PT ON ROOM AIR, NO SOB, NO C/O PAIN AT THIS MOMENT, DRESSING INTACT. INITIAL ASSESSMENT DONE, ALL SAFETY PRECAUTION MET, CALL LIGHT WITHIN REACH, WILL CONTINUE TO MONITOR.
--- NOTE | 2018-06-06 19:40 | NUR ---
DR. MONET TALKED TO PT AT BEDSIDE. PER DR. DAHL TO D/C, WILL PUT IN ORDER. STATED FOR PT TO SEE TOMORROW 06/07/18 @ 3PM.
--- NOTE | 2018-06-06 19:45 | NUR ---
PATIENT IS AWAKE, ALERT, RESPIRATION EVEN AND UNLABOR ON ROOM AIR. DENIES PAIN AND DISCOMFORT. IV IS INTACT AND PATENT. SKIN IS WARM AND DRY. FAMILY IS AT BEDSIDE. PLAN OF CARE WAS DISCUSS. BED IS IN LOW POSITION. CALL LIGHT WITHIN REACH.
[2018-06-06] MEDS ORDERED: METO-747 PO (20:18)
[2018-06-06] MEDS ORDERED: LEVO750T2 PO ×2 (20:40→20:41)
[2018-06-06] MEDS ORDERED: FERR325E14 PO (20:43)
[2018-06-06] MEDS ORDERED: IBUP-1842 PO (20:44)
--- NOTE | 2018-06-06 22:13 | NUR ---
PT SIGN ALL DISCHARGE PAPERS, PT STATED UNDERSTANDING THAT SHE IS BEING DISCHARGE, PRESCRIPTIONS GIVEN TO PT.
--- NOTE | 2018-06-06 22:35 | NUR ---
PT LEFT UNIT IN STABLE CONDITION, NO DISTRESS NOTED, IV TAKEN OUT, CATH INTACT, DRESSING INTACT, WRIST BAND TAKEN OFF, TELE MONITOR TAKEN OFF, ACCOMPANIED PT VIA WHEELCHAIR, PT LEFT HOSPITAL USING PERSONAL VEHICLE IN STABLE CONDITION.
[2018-07-31 10:41] LABS: ANTI-NUCLEAR ANTIBODY TITER SEE LCI RESULTS (Negative)
== END 2018-06-06 22:35 | disposition home or self-care (01) | DRG 540 ==
LOC: MLD 03:50 → MIC 05-31 09:16 → MTU 06-04 18:50
PROVIDERS: ADMIT Obstetrics & Gynecology; ATTEND Obstetrics & Gynecology
PROC: 10D00Z1 Extraction of Products of Conception, Low, Open Approach (ICD-10-PCS; principal; 2018-05-30)
DX: O76 Abnormality in fetal heart rate and rhythm complicating labor and delivery (principal); A41.9 Sepsis, unspecified organism; O75.3 Other infection during labor; J18.9 Pneumonia, unspecified organism; O36.4XX0 Maternal care for intrauterine death, not applicable or unspecified; G47.33 Obstructive sleep apnea (adult) (pediatric); O99.52 Diseases of the respiratory system complicating childbirth; O99.214 Obesity complicating childbirth; E66.01 Morbid (severe) obesity due to excess calories; F43.0 Acute stress reaction; O99.344 Other mental disorders complicating childbirth; O62.2 Other uterine inertia; O77.0 Labor and delivery complicated by meconium in amniotic fluid; Y95 Nosocomial condition; Z37.1 Single stillbirth; Z3A.38 38 weeks gestation of pregnancy
CPT/HCPCS: 36415; 36600; 51702; 71045; 71275; 74018; 80048; 80053; 80076; 80202; 81001; 82803; 83605; 83735; 83880; 84100; 84436; 84443; 84479; 84484; 85025; 85610; 85651; 85730; 86038; 86140; 86592; 86886; 86900; 86901; 87040; 87070; 87081; 87086; 87186; 93005; 93970; J0290; J1170; J1644; J1885; J1940; J2001; J2250; J2270; J2310; J2405; J2543; J2590; J2704; J2795; J3010; J3105; J3370; J3475; J3480; J3490; J7030; J7042; J7060; J7120; Q0092; Q9967

== ENCOUNTER 2018-07-12 19:56 | Emergency (ER) | payer MEDICAID ==
[~2018-07-12] VITALS: Ht 160 cm; Wt 81.6 kg
[~2018-07-12 19:56] MED LIST: FERR325E14 PO; IBUP-1842 PO; LEVO750T2 PO; METO-747 PO
[2018-07-12 20:13] VITALS: BP 133/73
--- NOTE | 2018-07-12 21:53 | NUR ---
Patient ambulated to bed 6. RN evaluating patient at bedside.
--- NOTE | 2018-07-12 22:02 | NUR ---
Dr. Lorenzo evaluating patient at bedside.
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
--- NOTE | 2018-07-12 22:27 | NUR ---
PT TO CT, WHEEL CHAIR
--- NOTE | 2018-07-12 23:08 | NUR ---
PT RESTING PATIENTLY. NO SIGNS OF ACUTE DISTRESS AT THIS TIME
[2018-07-12 23:39] VITALS: BP 133/73
--- NOTE | 2018-07-12 23:40 | NUR ---
Patient discharged with v/s stable. Written and verbal after care instructions given and explained. Patient verbalized understanding. Ambulatory with steady gait. All questions addressed prior to discharge. Advised to follow up with PMD.
== END 2018-07-12 23:40 | disposition home or self-care (01) ==
LOC: MED 19:56
DX: S00.12XA Contusion of left eyelid and periocular area, initial encounter (principal); R51 Headache; Z79.1 Long term (current) use of non-steroidal anti-inflammatories (NSAID); Z79.899 Other long term (current) drug therapy; W21.04XA Struck by golf ball, initial encounter; Y93.89 Activity, other specified; Y92.89 Other specified places as the place of occurrence of the external cause; Y99.8 Other external cause status
CPT/HCPCS: 70480; 99284

== ENCOUNTER 2019-10-09 07:31 | Emergency (ER) | payer OTHER, SELFPAY ==
[~2019-10-09] VITALS: Ht 157.5 cm; Wt 86.2 kg
[2019-10-09 07:41] VITALS: BP 129/76
--- NOTE | 2019-10-09 07:44 | NUR ---
WAIT AT TENT
--- NOTE | 2019-10-09 07:47 | NUR ---
PT AMB TO BED 10.
--- NOTE | 2019-10-09 07:50 | NUR ---
24 Y/O FEMALE PRESENTED TO ED C/O FEVER, COUGH AND BODY ACHES X2 DAYS. PT STATES SHE HAS BEEN HAVING A FEVER THAT GETS WORSE AT NIGHT. PT STATES SHE HAS BEEN TAKING ADVIL FOR THE FEVER. PT DENIES N/V/D. PT STATES COUGH STARTED YESTERDAY AND SHE'S BEEN COUGHING UP GREEN SPUTUM STARTING THIS MORNING. PT DENIES SOB. PT BREATHING EVEN AND UNLABORED. A/O X4. NAD NOTED AT THIS TIME. PT SITTING UP IN BED AT LOWEST POSITION. LAST DOSE OF ADVIL - 11PM 10/08/19 PMH: NONE NKA LMP: 09/06/19 , PT STATES HER PERIODS ARE IRREG.
[2019-10-09] MEDS ORDERED: IBUPROFEN 600 MG TAB PO ONE (08:00)
--- NOTE | 2019-10-09 08:05 | NUR ---
XRAY AT BEDSIDE.
--- NOTE | 2019-10-09 08:26 | NUR ---
FLU, COVID, STREPT SWABS COMPLETED AND WALKED OVER TO LAB.
[2019-10-09 09:34] VITALS: BP 125/69
--- NOTE | 2019-10-09 09:35 | NUR ---
Patient discharged with v/s stable. Written and verbal after care instructions given and explained. Patient alert, oriented and verbalized understanding of instructions. Ambulatory with steady gait. All questions addressed prior to discharge. ID band removed. Patient advised to follow up with PMD. Rx of IBUPROFEN 600MG given. Patient educated on indication of medication including possible reaction and side effects. Opportunity to ask questions provided and answered.
== END 2019-10-09 09:35 | disposition home or self-care (01) ==
LOC: MED 07:31 → EEVIPCON 07:31 → MED 09:35
DX: R50.9 Fever, unspecified (principal); Z20.828 Contact with and (suspected) exposure to other viral communicable diseases; Z79.899 Other long term (current) drug therapy; Z98.890 Other specified postprocedural states
CPT/HCPCS: 71045; 87081; 87804; 99284; C9803; Q0092; U0003; 36415

== ENCOUNTER 2019-10-23 07:10 | Emergency (ER) | payer OTHER, SELFPAY ==
[~2019-10-23] VITALS: Ht 160 cm; Wt 86.2 kg
[2019-10-23 07:19] VITALS: BP 142/71
--- NOTE | 2019-10-23 07:25 | NUR ---
C/O COUGH,SOB X 2 DAYS. SEEN HERE & COVID TEST + 10/08/17. TEMP 96.7, P 81, R 20, O2 SAT 96% AT THIS TIME. MED HX: DENIES
--- NOTE | 2019-10-23 07:41 | NUR ---
COVID SWAB DONE.
[2019-10-23 07:42] VITALS: BP 142/71
--- NOTE | 2019-10-23 07:42 | NUR ---
Patient discharged with v/s stable. Written and verbal after care instructions given and explained. Patient alert, oriented and verbalized understanding of instructions. Ambulatory with steady gait. All questions addressed prior to discharge. ID band removed. Patient advised to follow up with PMD. Rx of ALBUTEROL, E Z SPACER& TESSALON PERLES given. Patient educated on indication of medication including possible reaction and side effects. Opportunity to ask questions provided and answered.
== END 2019-10-23 07:42 | disposition home or self-care (01) ==
LOC: MED 07:10 → EEVIPCON 07:10 → MED 07:42
DX: R05 Cough (principal); R06.02 Shortness of breath; R50.9 Fever, unspecified; Z79.899 Other long term (current) drug therapy; Z98.890 Other specified postprocedural states; Z20.828 Contact with and (suspected) exposure to other viral communicable diseases
CPT/HCPCS: 99283; U0003

== ENCOUNTER 2021-07-25 10:50 | Emergency (ER) | payer OTHER, SELFPAY ==
[~2021-07-25] VITALS: Ht 157.5 cm; Wt 79.8 kg
[2021-07-25 11:13] VITALS: BP 147/81
--- NOTE | 2021-07-25 11:24 | NUR ---
26 Y/O F AMBYULATED TO BED 4, C/O PAINFUL URINATION X 4 DAYS, BURNING AND FREQ. URGE TO GO. PT TOOK OTC AZO, BUT NO RELEIF, -FEVER, -CHILLS. MEDHX: DENIES ALLERGIES: NKDA
[2021-07-25] MEDS ORDERED: NAPR-54 PO (12:11)
[2021-07-25] MEDS ORDERED: CEPH-588 PO (12:11)
--- NOTE | 2021-07-25 12:32 | NUR ---
Patient discharged with v/s stable. Written and verbal after care instructions given and explained. Patient alert, oriented and verbalized understanding of instructions. Ambulatory with steady gait. All questions addressed prior to discharge. ID band removed. Patient advised to follow up with PMD. Rx of KEFLEX, NAPROSYN given. Patient educated on indication of medication including possible reaction and side effects. Opportunity to ask questions provided and answered.
[2021-07-25 12:37] VITALS: BP 132/75
== END 2021-07-25 12:32 | disposition home or self-care (01) ==
LOC: MED 10:50
DX: N39.0 Urinary tract infection, site not specified (principal); Z79.899 Other long term (current) drug therapy
CPT/HCPCS: 81002; 81025; 99283

== ENCOUNTER 2022-02-07 07:10 | Emergency (ER) | payer OTHER ==
[~2022-02-07] VITALS: Ht 157.5 cm; Wt 83.0 kg
[~2022-02-07 07:10] MED LIST changes: +CEPH-588 PO; +NAPR-54 PO
[2022-02-07 07:19] VITALS: BP 122/90
--- NOTE | 2022-02-07 07:22 | NUR ---
PT TO BED 3
--- NOTE | 2022-02-07 07:52 | NUR ---
PT SWABBED AND SENT TO LAB
[2022-02-07] MEDS ORDERED: KETOROLAC 60 MG/2 ML VIAL IM ONE (08:10)
[2022-02-07] MEDS ORDERED: ALBUTEROL 0.083% 2.5 MG/3 ML NEBU INH ONE (08:20)
[2022-02-07] MEDS ORDERED: ROB PO (08:28)
[2022-02-07] MEDS ORDERED: IBUP-2213 PO (08:28)
[2022-02-07] MEDS ORDERED: INHA1SPA24 MC (08:28)
[2022-02-07] MEDS ORDERED: ALBU0.0912 INH (08:28)
[2022-02-07] MEDS ORDERED: ACET-10509 PO (08:28)
[2022-02-07 09:13] VITALS: BP 108/70
--- NOTE | 2022-02-07 09:14 | NUR ---
Patient discharged with v/s stable. Written and verbal after care instructions given and explained. Patient alert, oriented and verbalized understanding of instructions. Ambulatory with steady gait. All questions addressed prior to discharge. ID band removed. Patient advised to follow up with PMD. Rx of MOTRIN, TYLENOL, ROBITUSSIN, ALBUTEROL given. Patient educated on indication of medication including possible reaction and side effects. Opportunity to ask questions provided and answered.
== END 2022-02-07 09:14 | disposition home or self-care (01) ==
LOC: MED 07:10
DX: J06.9 Acute upper respiratory infection, unspecified (principal); Z20.822 Contact with and (suspected) exposure to COVID-19; Z79.899 Other long term (current) drug therapy
CPT/HCPCS: 87426; 87804; 94640; 96372; 99283; J1885; J7613

== ENCOUNTER 2022-08-14 12:59 | Emergency (ER) | payer OTHER ==
[~2022-08-14] VITALS: Ht 157.5 cm; Wt 81.6 kg
[~2022-08-14 12:59] MED LIST changes: +ACET-10509 PO; +ALBU0.0912 INH; +IBUP-2213 PO; +INHA1SPA24 MC; +ROB PO
[2022-08-14 13:20] VITALS: BP 120/83
--- NOTE | 2022-08-14 15:03 | NUR ---
BIB WHEELCHAIR TO ER BED 4 Addendum: 08/14/22 at 1505 by MEDDM BIB WHEELCHAIR TO ER BED [address] SCAN
--- NOTE | 2022-08-14 15:20 | NUR ---
TELE NEURO REQUEST SENT; CONNECT ID [id number]
[2022-08-14 15:24] VITALS: BP 126/85
[2022-08-14 15:31] LABS: BASOPHILS % (AUTO) 0.6 % (0.0-2.0); EOSINOPHILS # (AUTO) 0.1 K/uL (0-0.4); EOSINOPHILS % (AUTO) 2.2 % (0.0-4.0); HEMATOCRIT 38.2 % (36-48); LYMPHOCYTES % (AUTO) 33.3 % (20.5-51.1); MEAN CORPUSCULAR HEMOGLOBIN 28 pg (27-31); MEAN CORPUSCULAR HGB CONC 34 g/dL (33-37); MEAN CORPUSCULAR VOLUME 82.4 fL (80-94); MONOCYTES # (AUTO) 0.6 K/uL (0.8-1.0); NEUTROPHILS # (AUTO) 3.2 K/uL (1.8-7.7); NEUTROPHILS % (AUTO) 53.9 % (42.2-75.2); PLATELET COUNT (AUTO) 202 K/uL (140-450); RED BLOOD CELL COUNT(AUTO) 4.64 MIL/uL (4.20-5.40); RED CELL DISTRIBUTION WIDTH 14.3 % (11.6-13.7); WHITE BLOOD COUNT (AUTO) 5.9 K/uL (4.8-10.8)
[2022-08-14 15:52] LABS: ALBUMIN 3.1 g/dL (3.4-5.0); ANION GAP 8.1 (8-16); ASPARTATE AMINOTRANSFERASE 16 U/L (15-37); CARBON DIOXIDE 30.1 mmol/L (21-32); CHLORIDE 103 mmol/L (98-107); CREATININE 0.8 mg/dL (0.6-1.3); GFR ARICAN-AMERICAN 109 mL/min (>90); GLUCOSE 114 mg/dL (74-106); POTASSIUM 3.2 mmol/L (3.5-5.1); SODIUM SERUM 138 mmol/L (136-145); TOTAL BILIRUBIN 0.4 mg/dL (0.0-1.0); UREA NITROGEN, BLOOD 9 mg/dL (7-18)
[2022-08-14] MEDS ORDERED: KETOROLAC 15 MG/ML VIAL IVP ONE (15:55)
[2022-08-14] MEDS ORDERED: PROCHLORPERAZINE 10 MG/2 ML VIAL IVP ONE (15:55)
[2022-08-14] MEDS ORDERED: NACL 0.9% 1,000 ML IV ONE (15:55)
[2022-08-14] MEDS ORDERED: diphenhydrAMINE 50 MG/ML VIAL IVP ONE (15:55)
[2022-08-14] MEDS ORDERED: POTASSIUM CHLORIDE 20% 40 MEQ/15 ML UDC PO ONE (17:20)
== END 2022-08-14 18:20 | disposition home or self-care (01) ==
LOC: MED 12:59
DX: R53.1 Weakness (principal)
CPT/HCPCS: 36415; 70450; 70496; 70498; 71045; 80053; 81025; 84484; 85025; 85610; 85730; 86886; 86900; 86901; 93005; 96361; 96374; 96375; 99285; J0780; J1200; J1885; Q0092; Q9967

== ENCOUNTER 2022-08-17 08:05 | Emergency (ER) | payer OTHER ==
[~2022-08-17] VITALS: Ht 157.5 cm; Wt 85.7 kg
[2022-08-17 08:12] VITALS: BP 132/95
--- NOTE | 2022-08-17 08:45 | NUR ---
PT WALKED IN STEADY GAIT WITH CO NUMBNESS ON RIGHT ARM AND FACE. NO FURHTER CO. PT WAS A/OX4, SPEAKS FULL SENTENCES, FOLLOWS COMMAND, DENIES DOVE AND DIZZINESS. NO SOB. BREATHING EVEN.
[2022-08-17] MEDS: PROCHLORPERAZINE 10 MG/2 ML VIAL IVP ONE (09:55)
[2022-08-17] MEDS: KETOROLAC 15 MG/ML VIAL IVP ONE (09:56)
--- NOTE | 2022-08-17 09:58 | NUR ---
Pt was examined by ED MD. then pt was medicated per md order.
[2022-08-17] MEDS ORDERED: ACET-8001 PO (11:16)
[2022-08-17 11:28] VITALS: BP 135/75
== END 2022-08-17 11:28 | disposition home or self-care (01) ==
LOC: MED 08:05
DX: G43.909 Migraine, unspecified, not intractable, without status migrainosus (principal); Z79.899 Other long term (current) drug therapy; Z79.1 Long term (current) use of non-steroidal anti-inflammatories (NSAID); Z79.2 Long term (current) use of antibiotics
CPT/HCPCS: 96374; 96375; 99284; J0780; J1885

== ENCOUNTER 2022-11-16 04:45 | Emergency (ER) | payer OTHER ==
[~2022-11-16] VITALS: Ht 157.5 cm; Wt 77.1 kg
[~2022-11-16 04:45] MED LIST changes: +ACET-8001 PO
[2022-11-16 04:49] VITALS: BP 116/83; PULSE 86; RESP 16; TEMP 97.2; O2SAT 98
--- NOTE | 2022-11-16 04:56 | NUR ---
PT TAKEN TO BED 9
[2022-11-16 05:08] VITALS: O2SAT 98
--- NOTE | 2022-11-16 05:09 | NUR ---
Dr. Palumbo examining patient.
[2022-11-16 05:44] LABS: BASOPHILS # (AUTO) 0.1 K/uL (0.00-0.22); BASOPHILS % (AUTO) 0.9 % (0.0-2.0); EOSINOPHILS # (AUTO) 0.2 K/uL (0-0.4); EOSINOPHILS % (AUTO) 2.7 % (0.0-4.0); HEMATOCRIT 37.1 % (36-48); HEMOGLOBIN 12.8 g/dL (12.0-16.0); LYMPHOCYTES # (AUTO) 2.5 K/uL (2.5-16.5); LYMPHOCYTES % (AUTO) 33.7 % (20.5-51.1); MEAN CORPUSCULAR HEMOGLOBIN 28 pg (27-31); MEAN CORPUSCULAR HGB CONC 34 g/dL (33-37); MEAN CORPUSCULAR VOLUME 81.5 fL (80-94); MONOCYTES # (AUTO) 0.5 K/uL (0.8-1.0); MONOCYTES % (AUTO) 6.4 % (1.7-9.3); NEUTROPHILS # (AUTO) 4.1 K/uL (1.8-7.7); NEUTROPHILS % (AUTO) 56.3 % (42.2-75.2); PLATELET COUNT (AUTO) 223 K/uL (140-450); RED BLOOD CELL COUNT(AUTO) 4.56 MIL/uL (4.20-5.40); RED CELL DISTRIBUTION WIDTH 14.3 % (11.6-13.7); WHITE BLOOD COUNT (AUTO) 7.3 K/uL (4.8-10.8)
[2022-11-16 05:53] LABS: APPEARANCE,URINE CLEAR (CLEAR); BILIRUBIN,URINE NEGATIVE (NEGATIVE); BLOOD, URINE 1+ (NEGATIVE); COLOR,URINE YELLOW (YELLOW); LEUKOCYTE ESTERASE ,URINE NEGATIVE (NEGATIVE); NITRITE, URINE NEGATIVE (NEGATIVE); PH,URINE 6.5 (5.0-9.0); UGLUCOSE NEGATIVE (NEGATIVE)
--- NOTE | 2022-11-16 05:53 | NUR ---
Ultrasound at bedside.
[2022-11-16 06:02] LABS: RBC,URINE 0-5 /HPF (0-5)
[2022-11-16] MEDS ORDERED: CEPH250C16 PO (07:06)
[2022-11-16] MEDS ORDERED: PNV91TAB8 PO (07:06)
--- NOTE | 2022-11-16 07:14 | NUR ---
Patient discharged. Written and verbal after care instructions given and explained. Patient alert, oriented and verbalized understanding of instructions. Ambulatory with steady gait. All questions addressed prior to discharge. ID band removed. Patient advised to follow up with PMD. Rx of Keflex and tablets given. Patient educated on indication of medication including possible reaction and side effects. Opportunity to ask questions provided and answered.
== END 2022-11-16 07:14 | disposition home or self-care (01) ==
LOC: MED 04:45
DX: O20.0 Threatened abortion (principal); O23.91 Unspecified genitourinary tract infection in pregnancy, first trimester; R82.71 Bacteriuria; Z3A.01 Less than 8 weeks gestation of pregnancy; Z98.890 Other specified postprocedural states; Z79.899 Other long term (current) drug therapy; Z79.1 Long term (current) use of non-steroidal anti-inflammatories (NSAID); Z79.2 Long term (current) use of antibiotics
CPT/HCPCS: 36415; 76817; 81001; 81025; 84702; 85025; 87086; 99284; Q0092

== ENCOUNTER 2022-12-11 22:19 | Emergency (ER) | payer OTHER ==
[~2022-12-11] VITALS: Ht 157.5 cm; Wt 81.6 kg
[~2022-12-11 22:19] MED LIST changes: +CEPH250C16 PO; +PNV91TAB8 PO
[2022-12-11 22:25] VITALS: BP 124/60; PULSE 91; RESP 17; TEMP 98.2; O2SAT 99
--- NOTE | 2022-12-11 22:28 | NUR ---
TO LOBBY A/W BED AMBULATORY
--- NOTE | 2022-12-11 23:24 | NUR ---
PT AMBULATES TO BED 1
[2022-12-11 23:35] LABS: BASOPHILS # (AUTO) 0.1 K/uL (0.00-0.22); EOSINOPHILS # (AUTO) 0.4 K/uL (0-0.4); EOSINOPHILS % (AUTO) 3.9 % (0.0-4.0); HEMATOCRIT 38.6 % (36-48); HEMOGLOBIN 13.2 g/dL (12.0-16.0); LYMPHOCYTES # (AUTO) 2.8 K/uL (2.5-16.5); LYMPHOCYTES % (AUTO) 28.1 % (20.5-51.1); MEAN CORPUSCULAR HEMOGLOBIN 28 pg (27-31); MEAN CORPUSCULAR HGB CONC 34 g/dL (33-37); MEAN CORPUSCULAR VOLUME 82.3 fL (80-94); MONOCYTES # (AUTO) 0.8 K/uL (0.8-1.0); MONOCYTES % (AUTO) 8.1 % (1.7-9.3); NEUTROPHILS # (AUTO) 5.8 K/uL (1.8-7.7); NEUTROPHILS % (AUTO) 58.9 % (42.2-75.2); PLATELET COUNT (AUTO) 258 K/uL (140-450); RED BLOOD CELL COUNT(AUTO) 4.69 MIL/uL (4.20-5.40); RED CELL DISTRIBUTION WIDTH 14.6 % (11.6-13.7); WHITE BLOOD COUNT (AUTO) 9.9 K/uL (4.8-10.8)
[2022-12-11 23:36] LABS: APPEARANCE,URINE CLEAR (CLEAR); BILIRUBIN,URINE NEGATIVE (NEGATIVE); BLOOD, URINE NEGATIVE (NEGATIVE); COLOR,URINE YELLOW (YELLOW); LEUKOCYTE ESTERASE ,URINE NEGATIVE (NEGATIVE); NITRITE, URINE NEGATIVE (NEGATIVE); UGLUCOSE NEGATIVE (NEGATIVE)
[2022-12-12] MEDS ORDERED: NACL 0.9% 1,000 ML IV ONE (00:40)
[2022-12-12] MEDS ORDERED: ONDANSETRON 4 MG/2 ML VIAL IVP ONE (00:40)
--- NOTE | 2022-12-12 00:40 | NUR ---
pt resting on bed. a/ox4. not in distress. on monitor. call light within reach and oriented. bed locked to lwest position. placed on moderate high back rest. denies cramping at the moment. denies pain
[2022-12-12] MEDS ORDERED: SUCR1TAB35 PO (01:40)
[2022-12-12] MEDS ORDERED: DOXY1TAB4 PO (01:40)
[2022-12-12 02:15] VITALS: BP 119/75; PULSE 81; RESP 17; TEMP 98.2; O2SAT 99
--- NOTE | 2022-12-12 02:15 | NUR ---
Patient discharged with v/s stable. Written and verbal after care instructions given and explained. Patient alert, oriented and verbalized understanding of instructions. Ambulatory with steady gait. All questions addressed prior to discharge. ID band removed. Patient advised to follow up with PMD. Rx given to pt. Patient educated on indication of medication including possible reaction and side effects. Opportunity to ask questions provided and answered.
== END 2022-12-12 02:15 | disposition home or self-care (01) ==
LOC: MED 22:19
DX: O99.611 Diseases of the digestive system complicating pregnancy, first trimester (principal); K21.9 Gastro-esophageal reflux disease without esophagitis; O21.8 Other vomiting complicating pregnancy; Z3A.12 12 weeks gestation of pregnancy; Z98.890 Other specified postprocedural states; Z79.899 Other long term (current) drug therapy; Z79.2 Long term (current) use of antibiotics; Z79.1 Long term (current) use of non-steroidal anti-inflammatories (NSAID)
CPT/HCPCS: 36415; 81003; 84702; 85025; 86900; 86901; 96361; 96374; 99284; J2405; J7030